=== PATIENT | male | born 1960 | race Caucasian/White ===

== ENCOUNTER 2017-11-25 11:05 | Inpatient (IN) | payer OTHER ==
[~2017-11-25 11:05] MED LIST: Acetaminophen 1,000 MG in Premix Bag 1 BAG IV SCH; Famotidine 20 MG/2 ML SDV IVPUSH SCH; Ropivacaine 49.25 ML, Ketorolac 30 MG, EPINEPHrine 0.5 MG, cloNIDine 80 MCG in Sodium C... INJECT SCH; Scopolamine 1.5 MG Transdermal Patch TRDERM SCH; Tranexamic Acid 4,000 MG in Sodium Chloride 0.9% 100 ML IV SCH; ceFAZolin 2 GM in Premix Bag 1 BAG IV SCH; oxyCODONE ER 10 MG TAB.ER PO SCH
[2017-11-25] MEDS ORDERED: ceFAZolin 1 GM Vial ONE ×2 (11:25)
[2017-11-25] MEDS ORDERED: fentaNYL 100 MCG/2 ML SDV ONE (11:25)
[2017-11-25] MEDS: Lactated Ringers 1,000 ML IV SCH ×2 (11:25→15:32)
[2017-11-25] MEDS: Ketorolac 30 MG/ML SDV IVPUSH SCH ×3 (11:29→20:14)
--- NOTE | 2017-11-25 11:50 | PCM.PREANE ---
Preanesthetic Assessment - Procedure Proposed Procedure: rt total knee - Anesthesia/Transfusion/Family Hx Anesthesia History: Prior Anesthesia Without Reaction Family History of Anesthesia Reaction: No Transfusion History: No Prior Transfusion(s) Intubation History: Unknown - Review of Systems General: No Symptoms Pulmonary: No Symptoms, Other (recently quit smoking. no inhaler use for weeks) Cardiovascular: No Symptoms, Other (history of valve surgery at age 2 yrs. no cardiac problems since) Gastrointestinal: No Symptoms Neurological: No Symptoms Other: Reports: None - Physical Assessment NPO Status Date: 11/25/17 NPO Status Time: 00:00 O2 Sat by Pulse Oximetry: 96 Respiratory Rate: 16 Vital Signs: Last Vital Signs Temp 36.2 C 11/25/17 11:24 Pulse 83 11/25/17 11:24 Resp 16 11/25/17 11:24 BP 117/80 11/25/17 11:24 Pulse Ox 96 11/25/17 11:24 Height: 1.8 m Weight: 122.47 kg ASA Class: 2 Mental Status: Alert & Oriented x3 Airway Class: Mallampati = 2 Dentition: Reports: Bridge (front permanent bridge) Thyro-Mental Finger Breadths: 3 Mouth Opening Finger Breadths: 3 ROM/Head Extension: Full Lungs: Decreased Breath Sounds Cardiovascular: Regular Rate - Allergies Allergies/Adverse Reactions: Allergies Allergy/AdvReac Type Severity Reaction Status Date / Time No Known Allergies Allergy Verified 11/21/17 08:30 - Blood Blood Available: No - Acknowledgements Anesthesia Type Planned: Spinal Pt an Appropriate Candidate for the Planned Anesthesia: Yes Alternatives and Risks of Anesthesia Discussed w Pt/Guardian: Yes Pt/Guardian Understands and Agrees with Anesthesia Plan: Yes PreAnesthesia Questionnaire HEENT History: Reports: Allergic Rhinitis Other HEENT History: wears glasses Cardiovascular History: Reports: Hypertension Respiratory History: Reports: COPD Other Respiratory History: mild COPD, has rarely used inhaler Gastrointestinal History: Reports: GERD Musculoskeletal History: Reports: Arthritis, Fracture Other Musculoskeletal History: hx of fx left arm x3 Endocrine/Metabolic History: Reports: Obesity/BMI 30+ Hematologic History: Reports: Other (See Below) Other Hematologic History: may have had a transfusion at age 2 during open heart valve surgery Oncologic (Cancer) History: Reports: Basal Cell Carcinoma Other Oncologic History: states he has a basal cell carcinoma on left reese - Past Surgical History Head Surgeries/Procedures: Reports: None Cardiovascular Surgical History: Reports: Other (See Below) Other Cardiovascular Surgeries/Procedures: ?removal of valvular lesion at age 2 Musculoskeletal Surgical History: Reports: Other (See Below) Other Musculoskeletal Surgeries/Procedures:: hx of ACL repair right knee (has screws) - SUBSTANCE USE Smoking Status *Q: Former Smoker Tobacco Use Within Last Twelve Months: Cigarettes Days Per Week of Alcohol Use: 7 Number of Drinks Per Day: 3 Total Drinks Per Week: 21 Recreational Drug Use History: No - HOME MEDS Home Medications: Home Meds Fluticasone Propionate [Flonase Allergy Relief] 1 spray NASBOTH ASDIRECTED PRN 10/14/15 [History] Albuterol [IJD: Albuterol HFA] 2 puff INH ASDIRECTED PRN 11/21/17 [History] Naproxen Sodium [Aleve] 1 tab PO ASDIRECTED PRN 11/21/17 [History] Olmesartan/Amlodipin/Hcthiazid [Tribenzor 40-5-25 MG] 1 tab PO DAILY 11/21/17 [ History] Omeprazole 20 mg PO DAILY PRN 11/21/17 [History] - CURRENT (IN HOUSE) MEDS Current Meds: Current Medications Famotidine (Pepcid) 40 mg IVPUSH ONARRIVE [facility] Last Admin: 11/25/17 11:27 Dose: 40 mg Acetaminophen 1,000 mg/ Premix 100 mls @ 400 mls/hr IV ONARRIVE [facility] Last Admin: 11/25/17 11:31 Dose: 400 mls/hr Cefazolin Sodium/Dextrose 2 gm (/ Premix) 50 mls @ 100 mls/hr IV ONCALL [facility] Ropivacaine 49.25 ml/Ketorolac Tromethamine 30 mg/Epinephrine HCl 0.5 mg/ Clonidine HCl 80 mcg/ Sodium Chloride 100 mls @ 50 mls/min INJECT ASDIRECTED [facility] Lactated Ringer's (Ringers, Lactated) 1,000 mls @ 100 mls/hr IV ASDIRECTED [facility] Last Admin: 11/25/17 11:25 Dose: 100 mls/hr Tranexamic Acid 4,000 mg/ (Sodium Chloride) 140 mls @ 600 mls/hr IV ASDIRECTED [facility] Ketorolac Tromethamine (Toradol) 30 mg IVPUSH ONARRIVE [facility] Last Admin: 11/25/17 11:29 Dose: 30 mg Oxycodone HCl (Oxycontin) 10 mg PO ONARRIVE [facility] Last Admin: 11/25/17 11:26 Dose: 10 mg Scopolamine (Transderm-Scop) 1.5 mg TRDERM ONARRIVE [facility] Last Admin: 11/25/17 11:26 Dose: 1.5 mg Discontinued Medications Cefazolin Sodium (Ancef) Confirm Administered Dose 1 gm .ROUTE .STK-MED ONE Stop: 11/25/17 11:26 Cefazolin Sodium (Ancef) Confirm Administered Dose 1 gm .ROUTE .STK-MED ONE Stop: 11/25/17 11:26 Fentanyl (Sublimaze) Confirm Administered Dose 100 mcg .ROUTE .STK-MED ONE Stop: 11/25/17 11:26 Tranexamic Acid (Cyklokapron) Confirm Administered Dose 4,000 mg .ROUTE .STK- MED ONE Stop: 11/25/17 10:59
[2017-11-25] MEDS ORDERED: Midazolam 1 MG/ML 2 ML SDV ONE ×3 (12:37→13:21)
[2017-11-25] MEDS ORDERED: Propofol 200 MG/20 ML SDV ONE (12:43)
[2017-11-25] MEDS ORDERED: ePHEDrine 50 MG/ML SDV ONE (12:54)
--- NOTE | 2017-11-25 13:05 | PCM.POSTAN ---
POST ANESTHESIA ASSESSMENT - MENTAL STATUS Mental Status: Alert, Oriented - RESPIRATORY Respiratory Status: Respiratory Rate WNL, Airway Patent, O2 Saturation Stable - CARDIOVASCULAR CV Status: Pulse Rate WNL, Blood Pressure Stable - GASTROINTESTINAL GI Status: No Symptoms - POST OP HYDRATION Hydration Status: Adequate & Stable
[2017-11-25] MEDS ORDERED: diphenhydrAMINE 50 MG/ML SDV ONE (13:07)
[2017-11-25] MEDS ORDERED: Ondansetron 4 MG/2 ML SDV ONE (13:07)
[2017-11-25] MEDS ORDERED: Ondansetron 4 MG/2 ML SDV IV PRN (14:25)
[2017-11-25] MEDS ORDERED: Bisacodyl 10 MG Supp RECTAL PRN (14:26)
[2017-11-25] MEDS ORDERED: diphenhydrAMINE 25 MG Cap PO PRN (14:26)
[2017-11-25] MEDS ORDERED: Aluminum Hydroxide/Magnesium Hydroxide/Simethicone Susp 30 ML Cup PO PRN (14:26)
[2017-11-25] MEDS ORDERED: Fluticasone Propionate Nasal Spray 16 GM Bottle NASBOTH PRN (14:28)
[2017-11-25] MEDS ORDERED: Albuterol 8 GM Inhaler INH PRN (14:28)
--- NOTE | 2017-11-25 14:29 | PCM.OPNOTE ---
- General Post-Op/Procedure Note Date of Surgery/Procedure: 11/25/17 Operative Procedure(s): R TKA using iAssist Post-Op Diagnosis: DJD R knee Anesthesia Technique: Moderate Sedation, Spinal Primary Surgeon: Tessie Cornejo [employer] Supervisor: Thais Barboza [employer] Supervisor: Evaristo Hawk EBL in mLs: 100 Condition: Good Free Text/Narrative:: tt=16 min #[id number] Intake & Output 11/24/17 11/25/17 11/25/17 22:59 06:59 14:59 Output Total 125 Balance -125
--- NOTE | 2017-11-25 15:00 | CR ---
Right knee Clinical history: postoperative. Her graft there is satisfactory placement of a total knee prosthesis in anatomic position with skin clips anteriorly. There is a transverse distal metadiaphyseal screw i n the femur. This was present prior to surgery on April 02, 2017 Impression: Anatomically correct implanted total knee prosthesis
[2017-11-25] MEDS: Morphine PF 30 MG/30 ML PCA Vial IV SCH (15:05)
--- NOTE | 2017-11-25 15:05 | PCM.POSTAN ---
POST ANESTHESIA ASSESSMENT - MENTAL STATUS Mental Status: Alert, Oriented - VITAL SIGNS Pulse Rate: 66 SaO2: 97 Resp Rate: 10 Blood Pressure: 93/42 - RESPIRATORY Respiratory Status: Respiratory Rate WNL, Airway Patent, O2 Saturation Stable - CARDIOVASCULAR CV Status: Pulse Rate WNL, Blood Pressure Stable - GASTROINTESTINAL GI Status: No Symptoms - POST OP HYDRATION Hydration Status: Adequate & Stable - OBSERVATIONS Free Text/Narrative:: starting to move legs
[2017-11-25] MEDS: Acetaminophen/HYDROcodone 325-10 MG Tab PO PRN (17:12)
[2017-11-25] MEDS: ceFAZolin 2 GM in Premix Bag 1 BAG IV SCH (20:10)
--- NOTE | 2017-11-25 21:51 | OR ---
SURGEON: Tessie Cornejo MD DATE OF PROCEDURE: 11/25/2017 PREOPERATIVE DIAGNOSES: 1. Right knee degenerative joint disease, tricompartmental. 2. Status post right knee ACL reconstruction. POSTOPERATIVE DIAGNOSES: 1. Right knee degenerative joint disease, tricompartmental. 2. Status post right knee ACL reconstruction. PROCEDURE: Right total knee arthroplasty using [employer] computerized navigational technology. ASSISTANTS: Thais Barboza PA-C and Evaristo Hawk PA-C. ANESTHESIA: Spinal with sedation. ESTIMATED BLOOD LOSS: 100 mL. TOURNIQUET TIME: 16 minutes. COMPLICATIONS: None. DVT PROPHYLAXIS: PAS boot and JUAN hose to the nonoperative leg. IMPLANTS USED: Claudia Persona femoral component size 12 standard (LPS), tibial component size H, 10 mm all-polyethylene articular surface, and 35 mm all-polyethylene patella. INTRAOPERATIVE FINDINGS: Showed tricompartmental degenerative changes with grade 4 chondromalacia in all compartments. No significant synovitis was noted. The ACL graft appeared intact. BRIEF HISTORY: Lele is a 57-year-old male who has had complaint of progressive right knee pain. He has previously undergone a right knee ACL reconstruction. He did well initially following the ACL reconstruction, however, has developed increased pain in his knee recently. He had failed conservative treatment. Due to his lack of response to conservative treatment, I did recommend surgical intervention. Risks and goals of procedure were discussed with the patient and were documented preoperatively. He agreed to proceed. DESCRIPTION OF PROCEDURE: The patient was properly identified and brought to the operating room. The patient was then transferred from the operating room cart and placed on the operating table in a supine position. Anesthesia was administered by the anesthesia staff. After adequate anesthesia was obtained, a well-padded tourniquet was applied to the surgical lower extremity. Ruiz catheter was then placed. The lower extremity was then prepped in standard fashion using ChloraPrep solution. It was then sterilely draped. A time-out was performed to ensure correct site and procedure. Preoperative antibiotics were given along with one gram of tranexamic acid IV. The surgical site had been marked preoperatively. An incision was made over the anterior aspect of the knee. The subcutaneous tissues were dissected down to the level of the fascia. A medial parapatellar approach to the knee was made. A portion of the infrapatellar fat pad was then excised. The distal femur was then exposed. iAssist pads were calibrated preoperatively. The femoral cortex was entered centrally using a femoral spike. The femoral reference was then placed over the spike in a neutral rotation and was aligned with [facility] line. Two screws were then placed into the anterior fixation holes. Kinematic registration was then performed in 13 positions. Once the registration was confirmed, the femoral adjustment mechanism was placed along the anterior side of the femoral reference. Flexion/extension and varus/valgus were then adjusted appropriately for the cut. The femoral adjustment mechanism was then seated on the distal condyle. Three headless trocar pins were placed in the distal femoral cut guide. The registration was then released from the assembly. The femoral spike was removed with a slap hammer. The distal femur was then resected. Distal femoral cut validation was then performed with no changes noted. Instrumentation was then removed. The femur was then sized using an anterior referencing system. Appropriate size was noted. Pins were placed and removed. Pasquale's line and the epicondylar axis were then marked with electrocautery. The 4-in-1 cutting block was placed. This was placed in a slightly externally rotated position, which corresponded well with the previously drawn lines. The cutting guide was then pinned into position. An Neto wing guide was used to check the depth of resection of our anterior condylar cut and it was felt that no notching would occur. The anterior condylar cut was then made followed by the posterior condylar cut. Both the posterior chamfer and anterior chamfer cuts were then made. The cutting block was then removed along with the excess bony remnants. We then turned our attention to the tibia. The anterior cruciate ligament and posterior cruciate ligament were released and a posterior cruciate ligament retractor was placed to allow the tibia to be pulled anteriorly. The tibial alignment guide was then placed. Distally it was aligned with the medial and lateral malleoli. The longer spike was then placed into the mechanical axis. Rotation was then set to align with the medial third of the tibial tubercle. Both spikes were then inserted into the tibia. The tibial positioner and tibial adjustment mechanism were then placed onto the proximal part of the tibial alignment guide. The tibial positioner was then placed against the anterior cortex of the tibia. 3 hex head screws were used to secure the adjustment mechanism to the bone. Tibial registration was then performed. Adjustments were then made for flexion/extension and varus/valgus. A stylus was then placed into the guide. 2mm was used as the resection depth in the compartment with the most wear. This was then locked into position. The proximal tibial resection was then made with care being taken to protect the patellar tendon. The bony resection was then removed. The remainder of the medial and lateral meniscus were then excised. Care was taken to protect the popliteus tendon. The tibia was then sized to the appropriate size. Validation of the proximal tibial cut was then performed, with no changes noted. The femur was then elevated to aid in visualization of the posterior aspect of the knee. The posterior capsule was stripped off the distal femur both medially and laterally. The posterior capsule along with the medial and lateral gutters were then injected with a standard mixture consisting of Clonidine, Toradol, epinephrine, and Ropivacaine, unless any allergies were found preoperatively. The femoral component was then placed onto the distal femur in a slightly lateral position. This fit the femur well. A box cut was then made without difficulty. This was then removed. The tibial trial along with the polyethylene liner was then placed. The knee came easily into full extension and was stable to varus and valgus stressing both in full extension and flexion. Any additional releases were performed at this time. We then returned our attention to the patella. The patella was everted and towel clamps were used to hold the patella in position. It was resected to a 15 millimeter thickness. It was then sized to the appropriate size. It was prepared in the usual fashion after placing the predetermined size clamps. This was placed in a slightly superior and medial position. The clamp was then removed. The patellar trial button was placed. The knee was taken through a range of motion using the no-touch technique. The patella tracked centrally. All instruments were then removed from the knee. The tibial sizer was then placed on the tibia. The tibia was prepared in the usual fashion using the reamer and broach. This was then removed. An Esmarch was used to exsanguinate the lower extremity and the tourniquet was inflated. All bony surfaces were copiously irrigated with Pulsavac solution. They were then suctioned dry. Cement was prepared on the back table in the usual manner. Once it was prepared, the bone ends were again suctioned dry. The tibia was cemented into place first. This was malleted into position. Excess cement was then cleared. The femur was then placed in a similar manner. We placed the polyethylene trial into place and the knee was brought into full extension. An axial load was placed while keeping the knee in full extension. The patella button was also cemented into position and the clamp was used to hold this in place as the cement was allowed to cure. The wound was again copiously irrigated with a Pulsavac access tech. Following this one gram of tranexamic acid was applied topically to the wound. After we had adequate curing of the cement, the knee was again taken through a range of motion. The size of the polyethylene was then determined. The polyethylene was then removed. The tibial tray was suctioned to make sure there was no remaining soft tissue or cement. Excess cement was cleared from around the edges of the prosthesis as well. The tourniquet was then deflated. We were able to observe for any excess bleeding and none was noted. Electrocautery was used to maintain hemostasis. An additional gram of tranexamic acid was given IV. The retractors were again placed and the predetermined polyethylene was then placed. This was locked into position without difficulty. The knee was again taken through a range of motion with no change from the prior exam. The fascial layer was closed with Number One Vicryl. The subcutaneous tissues were closed with 2-0 Vicryl. The skin was closed with tom. Xeroform gauze was placed over the wound and a bulky dressing was applied. The patient was then awakened from anesthesia and transferred back to the operating room cart. He was brought to the recovery room in stable condition. All needle and sponge counts were correct. VIDYA / CARLOS /[id number] KODI
[2017-11-25] MEDS: oxyCODONE ER 10 MG TAB.ER PO SCH (21:56)
[2017-11-25] MEDS: Docusate Sodium 100 MG Cap PO SCH (21:56)
[2017-11-26] MEDS: Acetaminophen/HYDROcodone 325-10 MG Tab PO PRN ×2 (01:13→12:30)
[2017-11-26] MEDS: Ketorolac 30 MG/ML SDV IVPUSH SCH (02:19)
[2017-11-26] MEDS: Lactated Ringers 1,000 ML IV SCH (02:20)
[2017-11-26] MEDS: ceFAZolin 2 GM in Premix Bag 1 BAG IV SCH (04:12)
[2017-11-26] MEDS: Morphine PF 30 MG/30 ML PCA Vial IV SCH (08:15)
[2017-11-26] MEDS ORDERED: Sodium Chloride 0.9% 10 ML Syringe FLUSH PRN (08:26)
[2017-11-26] MEDS ORDERED: Sodium Chloride 0.9% 2.5 ML Syringe FLUSH PRN (08:26)
[2017-11-26] MEDS: Docusate Sodium 100 MG Cap PO SCH ×2 (08:28→20:26)
[2017-11-26] MEDS: Celecoxib 100 MG Cap PO SCH ×2 (08:29→20:26)
[2017-11-26] MEDS: Aspirin 325 MG Tab PO SCH ×2 (08:29→20:26)
[2017-11-26] MEDS: oxyCODONE ER 10 MG TAB.ER PO SCH ×2 (08:30→20:26)
[2017-11-26] MEDS: HCTHIAZID PO SCH (09:00)
[2017-11-26] MEDS: OLMESARTAN PO SCH (09:00)
[2017-11-26] MEDS: AMLODIPIN PO SCH (09:00)
--- NOTE | 2017-11-26 09:45 | PCM48HPAN ---
Post Anesthesia Note - EVALUATION WITHIN 48HRS OF ANESTHETIC Vital Signs in Normal Range: Yes Patient Participated in Evaluation: Yes Respiratory Function Stable: Yes Airway Patent: Yes Cardiovascular Function Stable: Yes Hydration Status Stable: Yes Pain Control Satisfactory: Yes Nausea and Vomiting Control Satisfactory: Yes Mental Status Recovered: Yes
--- NOTE | 2017-11-26 11:13 | PCM.SURGPN ---
<Thais Barboza R - Last Filed: 11/26/17 11:10> - General Info Date of Service: 11/26/17 Date of Surgery/Procedure: 11/25/17 POD#: 1 Functional Status: Reports: Tolerating Diet, Ambulating - Review of Systems General: Reports: No Symptoms Systems Review Comment:: pt up to chair for breakfast no specific concerns today states pain was difficult to control last night but slept well - Patient Data Vitals - Most Recent: Last Vital Signs Temp 99.0 F 11/26/17 07:25 Pulse 95 11/26/17 07:25 Resp 20 11/26/17 07:25 BP 108/64 11/26/17 07:25 Pulse Ox 92 L 11/26/17 07:25 Weight - Most Recent: 122.47 kg I&O - Last 24 Hours: Intake & Output 11/25/17 11/26/17 11/26/17 22:59 06:59 14:59 Intake Total 1999 1998 Output Total 60 550 Balance 1940 1449 Lab Results Last 24 Hrs: Laboratory Results - last 24 hr 11/25/17 11/25/17 11/26/17 Range/Units 12:02 12:02 05:01 Hgb 13.5 (13.0-17.0) g/dL Hct 39.6 (38.0-50.0) % INR 1.07 Blood Type A POSITIVE Antibody Screen NEGATIVE Med Orders - Current: Current Medications Hydrocodone Bitart/Acetaminophen (Olton 325-10 Mg) 1 - 2 tab PO Q4H PRN PRN Reason: Pain Last Admin: 11/26/17 01:13 Dose: 2 tab Al Hydroxide/Mg Hydroxide (Mag-Al Plus) 30 ml PO Q4H PRN PRN Reason: indigestion Albuterol (Ventolin Hfa) 8 gm INH ASDIRECTED PRN PRN Reason: Shortness of Breath Aspirin (Aspirin) 325 mg PO BID [facility] Last Admin: 11/26/17 08:29 Dose: 325 mg Bisacodyl (Dulcolax) 10 mg RECTAL DAILY PRN PRN Reason: Constipation Celecoxib (Celebrex) 200 mg PO BID [facility] Last Admin: 11/26/17 08:29 Dose: 200 mg Diphenhydramine HCl (Benadryl) 25 - 50 mg PO Q6H PRN PRN Reason: Itching Docusate Sodium (Colace) 100 mg PO BID [facility] Last Admin: 11/26/17 08:28 Dose: 100 mg Famotidine (Pepcid) 40 mg IVPUSH ONARRIVE [facility] Last Admin: 11/25/17 11:27 Dose: 40 mg Fluticasone Propionate (Flonase) 16 gm NASBOTH ASDIRECTED PRN PRN Reason: nasal congestion Acetaminophen 1,000 mg/ Premix 100 mls @ 400 mls/hr IV ONARRIVE [facility] Last Admin: 11/25/17 11:31 Dose: 400 mls/hr Cefazolin Sodium/Dextrose 2 gm (/ Premix) 50 mls @ 100 mls/hr IV ONCALL [facility] Ropivacaine 49.25 ml/Ketorolac Tromethamine 30 mg/Epinephrine HCl 0.5 mg/ Clonidine HCl 80 mcg/ Sodium Chloride 100 mls @ 50 mls/min INJECT ASDIRECTED [facility] Tranexamic Acid 4,000 mg/ (Sodium Chloride) 140 mls @ 600 mls/hr IV ASDIRECTED [facility] Ketorolac Tromethamine (Toradol) 30 mg IVPUSH ONARRIVE [facility] Last Admin: 11/25/17 11:29 Dose: 30 mg Morphine Sulfate (Morphine) 1 - 3 mg IVPUSH Q3H PRN PRN Reason: Pain Omeprazole (Omeprazole) 20 mg PO ACBREAKFAST PRN PRN Reason: Heartburn Ondansetron HCl (Zofran) 4 mg IV Q6HR PRN PRN Reason: NAUSEA/VOMITING Oxycodone HCl (Oxycontin) 10 mg PO ONARRIVE [facility] Last Admin: 11/25/17 11:26 Dose: 10 mg Oxycodone HCl (Oxycontin) 10 mg PO Q12HR [facility] Last Admin: 11/26/17 08:30 Dose: 10 mg Olmesartan/Amlodipin /Hcthiazid [ Tribenzor 40-5-25 Mg ] 1 Tab 1 each PO DAILY [facility] Last Admin: 11/26/17 09:00 Dose: Not Given Scopolamine (Transderm-Scop) 1.5 mg TRDERM ONARRIVE [facility] Last Admin: 11/25/17 11:26 Dose: 1.5 mg Sodium Chloride (Saline Flush) 10 ml FLUSH ASDIRECTED PRN PRN Reason: Keep Vein Open Sodium Chloride (Saline Flush) 2.5 ml FLUSH ASDIRECTED PRN PRN Reason: Keep Vein Open Discontinued Medications Cefazolin Sodium (Ancef) Confirm Administered Dose 1 gm .ROUTE .[facility] ONE Stop: 11/25/17 11:26 Cefazolin Sodium (Ancef) Confirm Administered Dose 1 gm .ROUTE .[facility] ONE Stop: 11/25/17 11:26 Diphenhydramine HCl (Benadryl) Confirm Administered Dose 50 mg .ROUTE .[facility] ONE Stop: 11/25/17 13:08 Ephedrine Sulfate (Ephedrine Sulfate) Confirm Administered Dose 50 mg .ROUTE .[facility] ONE Stop: 11/25/17 12:55 Fentanyl (Sublimaze) Confirm Administered Dose 100 mcg .ROUTE .[facility] ONE Stop: 11/25/17 11:26 Lactated Ringer's (Ringers, Lactated) 1,000 mls @ 100 mls/hr IV ASDIRECTED [facility] Last Admin: 11/26/17 02:20 Dose: 100 mls/hr Cefazolin Sodium/Dextrose 2 gm (/ Premix) 50 mls @ 100 mls/hr IV Q8H [facility] Stop: 11/26/17 04:29 Last Admin: 11/26/17 04:12 Dose: 100 mls/hr Ketorolac Tromethamine (Toradol) 30 mg IVPUSH Q6H [facility] Stop: 11/26/17 04:00 Last Admin: 11/26/17 02:19 Dose: 30 mg Midazolam HCl (Versed 1 Mg/Ml) Confirm Administered Dose 2 mg .ROUTE .[facility] ONE Stop: 11/25/17 12:38 Midazolam HCl (Versed 1 Mg/Ml) Confirm Administered Dose 2 mg .ROUTE .[facility] ONE Stop: 11/25/17 12:54 Midazolam HCl (Versed 1 Mg/Ml) Confirm Administered Dose 2 mg .ROUTE .[facility] ONE Stop: 11/25/17 13:22 Morphine Sulfate (Morphine Fleet Driver 30 Mg In 30 Ml) 30 mg IV ASDIRECTED [facility] PRN Reason: Protocol Last Admin: 11/26/17 08:15 Dose: 30 mg Ondansetron HCl (Zofran) Confirm Administered Dose 4 mg .ROUTE .[facility] ONE Stop: 11/25/17 13:08 Propofol (Diprivan 20 Ml) Confirm Administered Dose 600 mg .ROUTE .[facility] ONE Stop: 11/25/17 12:44 Tranexamic Acid (Cyklokapron) Confirm Administered Dose 4,000 mg .ROUTE .[facility] ONE Stop: 11/25/17 10:59 - Exam Wound/Incisions: Dressing Dry and Intact. No: Drainage, Erythema General: Alert, Oriented Cardiovascular: Regular Rate, Regular Rhythm Extremities: Other (exam R knee reveals dressing in place. at/ehl/gastroc 5/5, dp 2+, sensation intact distally) Physical Findings Comment:: vss, afeb uo 735mL hgb 13.5 - Problem List Review Problem List Initiated/Reviewed/Updated: Yes - My Orders Last 24 Hours: Active Orders 24 hr Category Date Time Status Activity as Tolerated [RC] .Routine Care 11/25/17 14:25 Active Dressing Change [Wound Care] [RC] ASDIRECTED Care 11/25/17 14:25 Active Neurovascular Check [RC] Q2HR Care 11/25/17 14:24 Active Notify Provider Vital Signs [RC] ASDIRECTED Care 11/25/17 14:25 Active Urinary Catheter Removal [RC] Per Unit Routine Care 11/26/17 08:26 Active Vital Signs [RC] Q4H Care 11/25/17 14:24 Active PT Evaluation and Treatment [CONS] Routine Cons 11/25/17 14:24 Active HEMOGLOBIN/HEMATOCRIT,HH [HEME] DAILY Lab 11/27/17 06:00 Ordered HEMOGLOBIN/HEMATOCRIT,HH [HEME] DAILY Lab 11/28/17 06:00 Ordered Acetaminophen/HYDROcodone [Olton 325-10 MG] Med 11/25/17 14:25 Active 1 - 2 tab PO Q4H PRN Albuterol [Ventolin HFA] Med 11/25/17 14:28 Active 8 gm INH ASDIRECTED PRN Alum Hydrox/Mag Hydrox/Simeth [Mag-Al Plus] Med 11/25/17 14:26 Active 30 ml PO Q4H PRN Aspirin Med 11/26/17 09:00 Active 325 mg PO BID Bisacodyl [Dulcolax] Med 11/25/17 14:26 Active 10 mg RECTAL DAILY PRN Celecoxib [CeleBREX] Med 11/26/17 09:00 Active 200 mg PO BID Docusate Sodium [Colace] Med 11/25/17 21:00 Active 100 mg PO BID Fluticasone Propionate [Flonase] Med 11/25/17 14:28 Active 16 gm NASBOTH ASDIRECTED PRN Morphine Med 11/26/17 08:25 Active 1 - 3 mg IVPUSH Q3H PRN Omeprazole Med 11/25/17 14:28 Active 20 mg PO ACBREAKFAST PRN Ondansetron [Zofran] Med 11/25/17 14:25 Active 4 mg IV Q6HR PRN Patient's Own Medication [Ptom] Med 11/26/17 09:00 Active 1 each PO DAILY Sodium Chloride 0.9% [Saline Flush] Med 11/26/17 08:26 Active 10 ml FLUSH ASDIRECTED PRN Sodium Chloride 0.9% [Saline Flush] Med 11/26/17 08:26 Active 2.5 ml FLUSH ASDIRECTED PRN diphenhydrAMINE [Benadryl] Med 11/25/17 14:26 Active 25 - 50 mg PO Q6H PRN oxyCODONE ER [OxyCONTIN] Med 11/25/17 21:00 Active 10 mg PO Q12HR Convert IV to Saline Lock [OM.PC] Routine Oth 11/26/17 08:26 Ordered Ice Therapy [OM.PC] Routine Oth 11/25/17 14:24 Ordered Medication Orders Hydrocodone Bitart/Acetaminophen (Olton 325-10 Mg) 1 - 2 tab PO Q4H PRN PRN Reason: Pain Last Admin: 11/26/17 01:13 Dose: 2 tab Admin: 11/25/17 17:12 Dose: 1 tab Al Hydroxide/Mg Hydroxide (Mag-Al Plus) 30 ml PO Q4H PRN PRN Reason: indigestion Albuterol (Ventolin Hfa) 8 gm INH ASDIRECTED PRN PRN Reason: Shortness of Breath Aspirin (Aspirin) 325 mg PO BID [facility] Last Admin: 11/26/17 08:29 Dose: 325 mg Bisacodyl (Dulcolax) 10 mg RECTAL DAILY PRN PRN Reason: Constipation Celecoxib (Celebrex) 200 mg PO BID [facility] Last Admin: 11/26/17 08:29 Dose: 200 mg Diphenhydramine HCl (Benadryl) 25 - 50 mg PO Q6H PRN PRN Reason: Itching Docusate Sodium (Colace) 100 mg PO BID [facility] Last Admin: 11/26/17 08:28 Dose: 100 mg Admin: 11/25/17 21:56 Dose: 100 mg Famotidine (Pepcid) 40 mg IVPUSH ONARRIVE [facility] Last Admin: 11/25/17 11:27 Dose: 40 mg Fluticasone Propionate (Flonase) 16 gm NASBOTH ASDIRECTED PRN PRN Reason: nasal congestion Acetaminophen 1,000 mg/ Premix 100 mls @ 400 mls/hr IV ONARRIVE [facility] Last Admin: 11/25/17 11:31 Dose: 400 mls/hr Cefazolin Sodium/Dextrose 2 gm (/ Premix) 50 mls @ 100 mls/hr IV ONCALL [facility] Ropivacaine 49.25 ml/Ketorolac Tromethamine 30 mg/Epinephrine HCl 0.5 mg/ Clonidine HCl 80 mcg/ Sodium Chloride 100 mls @ 50 mls/min INJECT ASDIRECTED [facility] Tranexamic Acid 4,000 mg/ (Sodium Chloride) 140 mls @ 600 mls/hr IV ASDIRECTED [facility] Ketorolac Tromethamine (Toradol) 30 mg IVPUSH ONARRIVE [facility] Last Admin: 11/25/17 11:29 Dose: 30 mg Morphine Sulfate (Morphine) 1 - 3 mg IVPUSH Q3H PRN PRN Reason: Pain Omeprazole (Omeprazole) 20 mg PO ACBREAKFAST PRN PRN Reason: Heartburn Ondansetron HCl (Zofran) 4 mg IV Q6HR PRN PRN Reason: NAUSEA/VOMITING Oxycodone HCl (Oxycontin) 10 mg PO ONARRIVE [facility] Last Admin: 11/25/17 11:26 Dose: 10 mg Oxycodone HCl (Oxycontin) 10 mg PO Q12HR [facility] Last Admin: 11/26/17 08:30 Dose: 10 mg Admin: 11/25/17 21:56 Dose: 10 mg Olmesartan/Amlodipin /Hcthiazid [ Tribenzor 40-5-25 Mg ] 1 Tab 1 each PO DAILY [facility] Last Admin: 11/26/17 09:00 Dose: Scopolamine (Transderm-Scop) 1.5 mg TRDERM ONARRIVE [facility] Last Admin: 11/25/17 11:26 Dose: 1.5 mg Sodium Chloride (Saline Flush) 10 ml FLUSH ASDIRECTED PRN PRN Reason: Keep Vein Open Sodium Chloride (Saline Flush) 2.5 ml FLUSH ASDIRECTED PRN PRN Reason: Keep Vein Open - Assessment Assessment (Free Text/Narrative):: POD#1 R TKA - Plan Plan (Free Text/Narrative):: DC [employer] CHE[employer], IV fluids, glass morphine 1-3mg IV q3h prn pain PT today ASA 325mg PO BID for DVT prophylaxis if pt does well with PT and pain is well controlled, may consider d/ch to home this afternoon will need dressing change to aquacel prior to discharge <Tessie Cornejo R - Last Filed: 11/27/17 08:34> - Patient Data Vitals - Most Recent: Last Vital Signs Temp 98.2 F 11/27/17 04:00 Pulse 82 11/27/17 04:00 Resp 18 11/27/17 04:00 BP 124/74 11/27/17 04:00 Pulse Ox 93 L 11/27/17 04:00 I&O - Last 24 Hours: Intake & Output 11/26/17 11/27/17 11/27/17 22:59 06:59 14:59 Intake Total 700 1650 Output Total 200 600 Balance 500 1050 Lab Results Last 24 Hrs: Laboratory Results - last 24 hr 11/27/17 Range/Units 05:25 Hgb 12.7 L (13.0-17.0) g/dL Hct 37.8 L (38.0-50.0) % Med Orders - Current: Current Medications Al Hydroxide/Mg Hydroxide (Mag-Al Plus) 30 ml PO Q4H PRN PRN Reason: indigestion Albuterol (Ventolin Hfa) 8 gm INH ASDIRECTED PRN PRN Reason: Shortness of Breath Aspirin (Aspirin) 325 mg PO BID [facility] Last Admin: 11/27/17 08:12 Dose: 325 mg Bisacodyl (Dulcolax) 10 mg RECTAL DAILY PRN PRN Reason: Constipation Celecoxib (Celebrex) 200 mg PO BID [facility] Last Admin: 11/27/17 08:10 Dose: 200 mg Diphenhydramine HCl (Benadryl) 25 - 50 mg PO Q6H PRN PRN Reason: Itching Docusate Sodium (Colace) 100 mg PO BID [facility] Last Admin: 11/27/17 08:11 Dose: 100 mg Famotidine (Pepcid) 40 mg IVPUSH ONARRIVE [facility] Last Admin: 11/25/17 11:27 Dose: 40 mg Fluticasone Propionate (Flonase) 16 gm NASBOTH ASDIRECTED PRN PRN Reason: nasal congestion Acetaminophen 1,000 mg/ Premix 100 mls @ 400 mls/hr IV ONARRIVE [facility] Last Admin: 11/25/17 11:31 Dose: 400 mls/hr Cefazolin Sodium/Dextrose 2 gm (/ Premix) 50 mls @ 100 mls/hr IV ONCALL [facility] Ropivacaine 49.25 ml/Ketorolac Tromethamine 30 mg/Epinephrine HCl 0.5 mg/ Clonidine HCl 80 mcg/ Sodium Chloride 100 mls @ 50 mls/min INJECT ASDIRECTED [facility] Tranexamic Acid 4,000 mg/ (Sodium Chloride) 140 mls @ 600 mls/hr IV ASDIRECTED [facility] Ketorolac Tromethamine (Toradol) 30 mg IVPUSH ONARRIVE [facility] Last Admin: 11/25/17 11:29 Dose: 30 mg Morphine Sulfate (Morphine) 1 - 3 mg IVPUSH Q3H PRN PRN Reason: Pain Last Admin: 11/27/17 08:08 Dose: 3 mg Omeprazole (Omeprazole) 20 mg PO ACBREAKFAST PRN PRN Reason: Heartburn Last Admin: 11/27/17 08:24 Dose: 20 mg Ondansetron HCl (Zofran) 4 mg IV Q6HR PRN PRN Reason: NAUSEA/VOMITING Last Admin: 11/26/17 11:14 Dose: 4 mg Oxycodone HCl (Oxycontin) 10 mg PO ONARRIVE [facility] Last Admin: 11/25/17 11:26 Dose: 10 mg Oxycodone HCl (Oxycontin) 10 mg PO Q12HR [facility] Last Admin: 11/27/17 08:11 Dose: 10 mg Oxycodone/Acetaminophen (Percocet 325-10 Mg) 2 tab PO Q4H PRN PRN Reason: Pain Last Admin: 11/27/17 02:16 Dose: 2 tab Olmesartan/Amlodipin /Hcthiazid [ Tribenzor 40-5-25 Mg ] 1 Tab 1 each PO DAILY [facility] Last Admin: 11/27/17 08:14 Dose: Not Given Scopolamine (Transderm-Scop) 1.5 mg TRDERM ONARRIVE [facility] Last Admin: 11/25/17 11:26 Dose: 1.5 mg Sodium Chloride (Saline Flush) 10 ml FLUSH ASDIRECTED PRN PRN Reason: Keep Vein Open Sodium Chloride (Saline Flush) 2.5 ml FLUSH ASDIRECTED PRN PRN Reason: Keep Vein Open Discontinued Medications Hydrocodone Bitart/Acetaminophen ([place] 325-10 Mg) 1 - 2 tab PO Q4H PRN PRN Reason: Pain Last Admin: 11/26/17 12:30 Dose: 2 tab Cefazolin Sodium (Ancef) Confirm Administered Dose 1 gm .ROUTE .[facility] ONE Stop: 11/25/17 11:26 Cefazolin Sodium (Ancef) Confirm Administered Dose 1 gm .ROUTE .[facility] ONE Stop: 11/25/17 11:26 Diphenhydramine HCl (Benadryl) Confirm Administered Dose 50 mg .ROUTE .[facility] ONE Stop: 11/25/17 13:08 Ephedrine Sulfate (Ephedrine Sulfate) Confirm Administered Dose 50 mg .ROUTE .[facility] ONE Stop: 11/25/17 12:55 Fentanyl (Sublimaze) Confirm Administered Dose 100 mcg .ROUTE .[facility] ONE Stop: 11/25/17 11:26 Lactated Ringer's (Ringers, Lactated) 1,000 mls @ 100 mls/hr IV ASDIRECTED [facility] Last Admin: 11/26/17 02:20 Dose: 100 mls/hr Cefazolin Sodium/Dextrose 2 gm (/ Premix) 50 mls @ 100 mls/hr IV Q8H [facility] Stop: 11/26/17 04:29 Last Admin: 11/26/17 04:12 Dose: 100 mls/hr Ketorolac Tromethamine (Toradol) 30 mg IVPUSH Q6H [facility] Stop: 11/26/17 04:00 Last Admin: 11/26/17 02:19 Dose: 30 mg Midazolam HCl (Versed 1 Mg/Ml) Confirm Administered Dose 2 mg .ROUTE .[facility] ONE Stop: 11/25/17 12:38 Midazolam HCl (Versed 1 Mg/Ml) Confirm Administered Dose 2 mg .ROUTE .[facility] ONE Stop: 11/25/17 12:54 Midazolam HCl (Versed 1 Mg/Ml) Confirm Administered Dose 2 mg .ROUTE .[facility] ONE Stop: 11/25/17 13:22 Morphine Sulfate (Morphine Fleet Driver 30 Mg In 30 Ml) 30 mg IV ASDIRECTED [facility] PRN Reason: Protocol Last Admin: 11/26/17 08:15 Dose: 30 mg Ondansetron HCl (Zofran) Confirm Administered Dose 4 mg .ROUTE .[facility] ONE Stop: 11/25/17 13:08 Propofol (Diprivan 20 Ml) Confirm Administered Dose 600 mg .ROUTE .[facility] ONE Stop: 11/25/17 12:44 Tranexamic Acid (Cyklokapron) Confirm Administered Dose 4,000 mg .ROUTE .[facility] ONE Stop: 11/25/17 10:59 - My Orders Last 24 Hours: Active Orders 24 hr Category Date Time Status HEMOGLOBIN/HEMATOCRIT,HH [HEME] DAILY Lab 11/28/17 06:00 Ordered Acetaminophen/oxyCODONE [Percocet 325-10 MG] Med 11/26/17 17:46 Active 2 tab PO Q4H PRN Aspirin Med 11/26/17 09:00 Active 325 mg PO BID Celecoxib [CeleBREX] Med 11/26/17 09:00 Active 200 mg PO BID Morphine Med 11/26/17 08:25 Active 1 - 3 mg IVPUSH Q3H PRN Patient's Own Medication [Ptom] Med 11/26/17 09:00 Active 1 each PO DAILY Sodium Chloride 0.9% [Saline Flush] Med 11/26/17 08:26 Active 10 ml FLUSH ASDIRECTED PRN Sodium Chloride 0.9% [Saline Flush] Med 11/26/17 08:26 Active 2.5 ml FLUSH ASDIRECTED PRN Convert IV to Saline Lock [OM.PC] Routine Oth 11/26/17 08:26 Ordered Medication Orders Al Hydroxide/Mg Hydroxide (Mag-Al Plus) 30 ml PO Q4H PRN PRN Reason: indigestion Albuterol (Ventolin Hfa) 8 gm INH ASDIRECTED PRN PRN Reason: Shortness of Breath Aspirin (Aspirin) 325 mg PO BID [facility] Last Admin: 11/27/17 08:12 Dose: 325 mg Admin: 11/26/17 20:26 Dose: 325 mg Admin: 11/26/17 08:29 Dose: 325 mg Bisacodyl (Dulcolax) 10 mg RECTAL DAILY PRN PRN Reason: Constipation Celecoxib (Celebrex) 200 mg PO BID [facility] Last Admin: 11/27/17 08:10 Dose: 200 mg Admin: 11/26/17 20:26 Dose: 200 mg Admin: 11/26/17 08:29 Dose: 200 mg Diphenhydramine HCl (Benadryl) 25 - 50 mg PO Q6H PRN PRN Reason: Itching Docusate Sodium (Colace) 100 mg PO BID [facility] Last Admin: 11/27/17 08:11 Dose: 100 mg Admin: 11/26/17 20:26 Dose: 100 mg Admin: 11/26/17 08:28 Dose: 100 mg Admin: 11/25/17 21:56 Dose: 100 mg Famotidine (Pepcid) 40 mg IVPUSH ONARRIVE [facility] Last Admin: 11/25/17 11:27 Dose: 40 mg Fluticasone Propionate (Flonase) 16 gm NASBOTH ASDIRECTED PRN PRN Reason: nasal congestion Acetaminophen 1,000 mg/ Premix 100 mls @ 400 mls/hr IV ONARRIVE [facility] Last Admin: 11/25/17 11:31 Dose: 400 mls/hr Cefazolin Sodium/Dextrose 2 gm (/ Premix) 50 mls @ 100 mls/hr IV ONCALL [facility] Ropivacaine 49.25 ml/Ketorolac Tromethamine 30 mg/Epinephrine HCl 0.5 mg/ Clonidine HCl 80 mcg/ Sodium Chloride 100 mls @ 50 mls/min INJECT ASDIRECTED [facility] Tranexamic Acid 4,000 mg/ (Sodium Chloride) 140 mls @ 600 mls/hr IV ASDIRECTED [facility] Ketorolac Tromethamine (Toradol) 30 mg IVPUSH ONARRIVE [facility] Last Admin: 11/25/17 11:29 Dose: 30 mg Morphine Sulfate (Morphine) 1 - 3 mg IVPUSH Q3H PRN PRN Reason: Pain Last Admin: 11/27/17 08:08 Dose: 3 mg Admin: 11/26/17 15:49 Dose: 3 mg Admin: 11/26/17 13:04 Dose: 3 mg Omeprazole (Omeprazole) 20 mg PO ACBREAKFAST PRN PRN Reason: Heartburn Last Admin: 11/27/17 08:24 Dose: 20 mg Admin: 11/26/17 16:39 Dose: 20 mg Ondansetron HCl (Zofran) 4 mg IV Q6HR PRN PRN Reason: NAUSEA/VOMITING Last Admin: 11/26/17 11:14 Dose: 4 mg Oxycodone HCl (Oxycontin) 10 mg PO ONARRIVE [facility] Last Admin: 11/25/17 11:26 Dose: 10 mg Oxycodone HCl (Oxycontin) 10 mg PO Q12HR [facility] Last Admin: 11/27/17 08:11 Dose: 10 mg Admin: 11/26/17 20:26 Dose: 10 mg Admin: 11/26/17 08:30 Dose: 10 mg Admin: 11/25/17 21:56 Dose: 10 mg Oxycodone/Acetaminophen (Percocet 325-10 Mg) 2 tab PO Q4H PRN PRN Reason: Pain Last Admin: 11/27/17 02:16 Dose: 2 tab Admin: 11/26/17 17:56 Dose: 2 tab Olmesartan/Amlodipin /Hcthiazid [ Tribenzor 40-5-25 Mg ] 1 Tab 1 each PO DAILY [facility] Last Admin: 11/27/17 08:14 Dose: Admin: 11/26/17 09:00 Dose: Scopolamine (Transderm-Scop) 1.5 mg TRDERM ONARRIVE [facility] Last Admin: 11/25/17 11:26 Dose: 1.5 mg Sodium Chloride (Saline Flush) 10 ml FLUSH ASDIRECTED PRN PRN Reason: Keep Vein Open Sodium Chloride (Saline Flush) 2.5 ml FLUSH ASDIRECTED PRN PRN Reason: Keep Vein Open - Plan Plan (Free Text/Narrative):: Late entry Patient seen and examined last night at 1730. Sitting up in chair for supper. Still with pain despite po and IV meds. Dressing dry/intact. Weakness with ankle dorsiflexion and EHL, but able to fire muscle. No calf TTP. hgb stable. Change to Percocet. Plan discharge home tomorrow.
[2017-11-26] MEDS: Morphine 4 MG/ML Syringe IVPUSH PRN ×2 (13:04→15:49)
[2017-11-26] MEDS: Omeprazole 20 MG Cap.CR PO PRN (16:39)
[2017-11-26] MEDS: Acetaminophen/oxyCODONE 325-10 MG Tab PO PRN (17:56)
[2017-11-27] MEDS: Acetaminophen/oxyCODONE 325-10 MG Tab PO PRN ×2 (02:16→11:47)
[2017-11-27] MEDS: Morphine 4 MG/ML Syringe IVPUSH PRN (08:08)
[2017-11-27] MEDS: Celecoxib 100 MG Cap PO SCH (08:10)
[2017-11-27] MEDS: Docusate Sodium 100 MG Cap PO SCH (08:11)
[2017-11-27] MEDS: oxyCODONE ER 10 MG TAB.ER PO SCH (08:11)
[2017-11-27] MEDS: Aspirin 325 MG Tab PO SCH (08:12)
[2017-11-27] MEDS: HCTHIAZID PO SCH (08:14)
[2017-11-27] MEDS: OLMESARTAN PO SCH (08:14)
[2017-11-27] MEDS: AMLODIPIN PO SCH (08:14)
[2017-11-27] MEDS: Omeprazole 20 MG Cap.CR PO PRN (08:24)
--- NOTE | 2017-11-27 08:51 | PCM.SURGPN ---
Addendum entered and electronically signed by Thais Barboza PA 11/27/17 10: 16: d/ summary #[id number] Original Note: <Thais Barboza - Last Filed: 11/27/17 08:49> - General Info Date of Service: 11/27/17 Date of Surgery/Procedure: 11/25/17 POD#: 2 Functional Status: Reports: Pain Controlled, Tolerating Diet, Ambulating, Urinating - Review of Systems General: Reports: No Symptoms Musculoskeletal: Reports: Leg Pain Systems Review Comment:: pt up to chair for breakfast pain better controlled with Percocet feels R ankle is moving better today - no difficulties ambulating, just takes it slow no other specific concerns today - Patient Data Vitals - Most Recent: Last Vital Signs Temp 98.2 F 11/27/17 04:00 Pulse 82 11/27/17 04:00 Resp 18 11/27/17 04:00 BP 124/74 11/27/17 04:00 Pulse Ox 93 L 11/27/17 04:00 Weight - Most Recent: 122.47 kg I&O - Last 24 Hours: Intake & Output 11/26/17 11/27/17 11/27/17 22:59 06:59 14:59 Intake Total 700 1650 Output Total 200 600 Balance 500 1050 Lab Results Last 24 Hrs: Laboratory Results - last 24 hr 11/27/17 Range/Units 05:25 Hgb 12.7 L (13.0-17.0) g/dL Hct 37.8 L (38.0-50.0) % Med Orders - Current: Current Medications Al Hydroxide/Mg Hydroxide (Mag-Al Plus) 30 ml PO Q4H PRN PRN Reason: indigestion Albuterol (Ventolin Hfa) 8 gm INH ASDIRECTED PRN PRN Reason: Shortness of Breath Aspirin (Aspirin) 325 mg PO BID [facility] Last Admin: 11/27/17 08:12 Dose: 325 mg Bisacodyl (Dulcolax) 10 mg RECTAL DAILY PRN PRN Reason: Constipation Celecoxib (Celebrex) 200 mg PO BID [facility] Last Admin: 11/27/17 08:10 Dose: 200 mg Diphenhydramine HCl (Benadryl) 25 - 50 mg PO Q6H PRN PRN Reason: Itching Docusate Sodium (Colace) 100 mg PO BID [facility] Last Admin: 11/27/17 08:11 Dose: 100 mg Famotidine (Pepcid) 40 mg IVPUSH ONARRIVE [facility] Last Admin: 11/25/17 11:27 Dose: 40 mg Fluticasone Propionate (Flonase) 16 gm NASBOTH ASDIRECTED PRN PRN Reason: nasal congestion Acetaminophen 1,000 mg/ Premix 100 mls @ 400 mls/hr IV ONARRIVE [facility] Last Admin: 11/25/17 11:31 Dose: 400 mls/hr Cefazolin Sodium/Dextrose 2 gm (/ Premix) 50 mls @ 100 mls/hr IV ONCALL [facility] Ropivacaine 49.25 ml/Ketorolac Tromethamine 30 mg/Epinephrine HCl 0.5 mg/ Clonidine HCl 80 mcg/ Sodium Chloride 100 mls @ 50 mls/min INJECT ASDIRECTED [facility] Tranexamic Acid 4,000 mg/ (Sodium Chloride) 140 mls @ 600 mls/hr IV ASDIRECTED [facility] Ketorolac Tromethamine (Toradol) 30 mg IVPUSH ONARRIVE [facility] Last Admin: 11/25/17 11:29 Dose: 30 mg Morphine Sulfate (Morphine) 1 - 3 mg IVPUSH Q3H PRN PRN Reason: Pain Last Admin: 11/27/17 08:08 Dose: 3 mg Omeprazole (Omeprazole) 20 mg PO ACBREAKFAST PRN PRN Reason: Heartburn Last Admin: 11/27/17 08:24 Dose: 20 mg Ondansetron HCl (Zofran) 4 mg IV Q6HR PRN PRN Reason: NAUSEA/VOMITING Last Admin: 11/26/17 11:14 Dose: 4 mg Oxycodone HCl (Oxycontin) 10 mg PO ONARRIVE [facility] Last Admin: 11/25/17 11:26 Dose: 10 mg Oxycodone HCl (Oxycontin) 10 mg PO Q12HR [facility] Last Admin: 11/27/17 08:11 Dose: 10 mg Oxycodone/Acetaminophen (Percocet 325-10 Mg) 2 tab PO Q4H PRN PRN Reason: Pain Last Admin: 11/27/17 02:16 Dose: 2 tab Olmesartan/Amlodipin /Hcthiazid [ Tribenzor 40-5-25 Mg ] 1 Tab 1 each PO DAILY [facility] Last Admin: 11/27/17 08:14 Dose: Not Given Scopolamine (Transderm-Scop) 1.5 mg TRDERM ONARRIVE [facility] Last Admin: 11/25/17 11:26 Dose: 1.5 mg Sodium Chloride (Saline Flush) 10 ml FLUSH ASDIRECTED PRN PRN Reason: Keep Vein Open Sodium Chloride (Saline Flush) 2.5 ml FLUSH ASDIRECTED PRN PRN Reason: Keep Vein Open Discontinued Medications Hydrocodone Bitart/Acetaminophen ([place] 325-10 Mg) 1 - 2 tab PO Q4H PRN PRN Reason: Pain Last Admin: 11/26/17 12:30 Dose: 2 tab Cefazolin Sodium (Ancef) Confirm Administered Dose 1 gm .ROUTE .STK-MED ONE Stop: 11/25/17 11:26 Cefazolin Sodium (Ancef) Confirm Administered Dose 1 gm .ROUTE .STK-MED ONE Stop: 11/25/17 11:26 Diphenhydramine HCl (Benadryl) Confirm Administered Dose 50 mg .ROUTE .STK-MED ONE Stop: 11/25/17 13:08 Ephedrine Sulfate (Ephedrine Sulfate) Confirm Administered Dose 50 mg .ROUTE .STK-MED ONE Stop: 11/25/17 12:55 Fentanyl (Sublimaze) Confirm Administered Dose 100 mcg .ROUTE .STK-MED ONE Stop: 11/25/17 11:26 Lactated Ringer's (Ringers, Lactated) 1,000 mls @ 100 mls/hr IV ASDIRECTED [facility] Last Admin: 11/26/17 02:20 Dose: 100 mls/hr Cefazolin Sodium/Dextrose 2 gm (/ Premix) 50 mls @ 100 mls/hr IV Q8H [facility] Stop: 11/26/17 04:29 Last Admin: 11/26/17 04:12 Dose: 100 mls/hr Ketorolac Tromethamine (Toradol) 30 mg IVPUSH Q6H [facility] Stop: 11/26/17 04:00 Last Admin: 11/26/17 02:19 Dose: 30 mg Midazolam HCl (Versed 1 Mg/Ml) Confirm Administered Dose 2 mg .ROUTE .STK-MED ONE Stop: 11/25/17 12:38 Midazolam HCl (Versed 1 Mg/Ml) Confirm Administered Dose 2 mg .ROUTE .STK-MED ONE Stop: 11/25/17 12:54 Midazolam HCl (Versed 1 Mg/Ml) Confirm Administered Dose 2 mg .ROUTE .STK-MED ONE Stop: 11/25/17 13:22 Morphine Sulfate (Morphine Sanitation Director 30 Mg In 30 Ml) 30 mg IV ASDIRECTED [place] PRN Reason: Protocol Last Admin: 11/26/17 08:15 Dose: 30 mg Ondansetron HCl (Zofran) Confirm Administered Dose 4 mg .ROUTE .STK-MED ONE Stop: 11/25/17 13:08 Propofol (Diprivan 20 Ml) Confirm Administered Dose 600 mg .ROUTE .STK-MED ONE Stop: 11/25/17 12:44 Tranexamic Acid (Cyklokapron) Confirm Administered Dose 4,000 mg .ROUTE .STK- MED ONE Stop: 11/25/17 10:59 - Exam Wound/Incisions: Healing Well. No: Drainage, Erythema General: Alert, Oriented Cardiovascular: Regular Rate, Regular Rhythm Extremities: Other (exam RLE - at/ehl 1-2/5, gastroc 5/5, dp 2+) Physical Findings Comment:: vss, afeb hgb 12.7 - Problem List Review Problem List Initiated/Reviewed/Updated: Yes - My Orders Last 24 Hours: Active Orders 24 hr Category Date Time Status Ready for Discharge [RC] PER UNIT ROUTINE Care 11/27/17 08:48 Ordered HEMOGLOBIN/HEMATOCRIT,HH [HEME] DAILY Lab 11/28/17 06:00 Ordered Acetaminophen/oxyCODONE [Percocet 325-10 MG] Med 11/26/17 17:46 Active 2 tab PO Q4H PRN Aspirin Med 11/26/17 09:00 Active 325 mg PO BID Celecoxib [CeleBREX] Med 11/26/17 09:00 Active 200 mg PO BID Morphine Med 11/26/17 08:25 Active 1 - 3 mg IVPUSH Q3H PRN Patient's Own Medication [Ptom] Med 11/26/17 09:00 Active 1 each PO DAILY Sodium Chloride 0.9% [Saline Flush] Med 11/26/17 08:26 Active 10 ml FLUSH ASDIRECTED PRN Sodium Chloride 0.9% [Saline Flush] Med 11/26/17 08:26 Active 2.5 ml FLUSH ASDIRECTED PRN Convert IV to Saline Lock [OM.PC] Routine Oth 11/26/17 08:26 Ordered Medication Orders Al Hydroxide/Mg Hydroxide (Mag-Al Plus) 30 ml PO Q4H PRN PRN Reason: indigestion Albuterol (Ventolin Hfa) 8 gm INH ASDIRECTED PRN PRN Reason: Shortness of Breath Aspirin (Aspirin) 325 mg PO BID [facility] Last Admin: 11/27/17 08:12 Dose: 325 mg Admin: 11/26/17 20:26 Dose: 325 mg Admin: 11/26/17 08:29 Dose: 325 mg Bisacodyl (Dulcolax) 10 mg RECTAL DAILY PRN PRN Reason: Constipation Celecoxib (Celebrex) 200 mg PO BID [facility] Last Admin: 11/27/17 08:10 Dose: 200 mg Admin: 11/26/17 20:26 Dose: 200 mg Admin: 11/26/17 08:29 Dose: 200 mg Diphenhydramine HCl (Benadryl) 25 - 50 mg PO Q6H PRN PRN Reason: Itching Docusate Sodium (Colace) 100 mg PO BID [facility] Last Admin: 11/27/17 08:11 Dose: 100 mg Admin: 11/26/17 20:26 Dose: 100 mg Admin: 11/26/17 08:28 Dose: 100 mg Admin: 11/25/17 21:56 Dose: 100 mg Famotidine (Pepcid) 40 mg IVPUSH ONARRIVE [facility] Last Admin: 11/25/17 11:27 Dose: 40 mg Fluticasone Propionate (Flonase) 16 gm NASBOTH ASDIRECTED PRN PRN Reason: nasal congestion Acetaminophen 1,000 mg/ Premix 100 mls @ 400 mls/hr IV ONARRIVE [facility] Last Admin: 11/25/17 11:31 Dose: 400 mls/hr Cefazolin Sodium/Dextrose 2 gm (/ Premix) 50 mls @ 100 mls/hr IV ONCALL [facility] Ropivacaine 49.25 ml/Ketorolac Tromethamine 30 mg/Epinephrine HCl 0.5 mg/ Clonidine HCl 80 mcg/ Sodium Chloride 100 mls @ 50 mls/min INJECT ASDIRECTED [facility] Tranexamic Acid 4,000 mg/ (Sodium Chloride) 140 mls @ 600 mls/hr IV ASDIRECTED [facility] Ketorolac Tromethamine (Toradol) 30 mg IVPUSH ONARRIVE [place] Last Admin: 11/25/17 11:29 Dose: 30 mg Morphine Sulfate (Morphine) 1 - 3 mg IVPUSH Q3H PRN PRN Reason: Pain Last Admin: 11/27/17 08:08 Dose: 3 mg Admin: 11/26/17 15:49 Dose: 3 mg Admin: 11/26/17 13:04 Dose: 3 mg Omeprazole (Omeprazole) 20 mg PO ACBREAKFAST PRN PRN Reason: Heartburn Last Admin: 11/27/17 08:24 Dose: 20 mg Admin: 11/26/17 16:39 Dose: 20 mg Ondansetron HCl (Zofran) 4 mg IV Q6HR PRN PRN Reason: NAUSEA/VOMITING Last Admin: 11/26/17 11:14 Dose: 4 mg Oxycodone HCl (Oxycontin) 10 mg PO ONARRIVE [facility] Last Admin: 11/25/17 11:26 Dose: 10 mg Oxycodone HCl (Oxycontin) 10 mg PO Q12HR [facility] Last Admin: 11/27/17 08:11 Dose: 10 mg Admin: 11/26/17 20:26 Dose: 10 mg Admin: 11/26/17 08:30 Dose: 10 mg Admin: 11/25/17 21:56 Dose: 10 mg Oxycodone/Acetaminophen (Percocet 325-10 Mg) 2 tab PO Q4H PRN PRN Reason: Pain Last Admin: 11/27/17 02:16 Dose: 2 tab Admin: 11/26/17 17:56 Dose: 2 tab Olmesartan/Amlodipin /Hcthiazid [ Tribenzor 40-5-25 Mg ] 1 Tab 1 each PO DAILY [facility] Last Admin: 11/27/17 08:14 Dose: Admin: 11/26/17 09:00 Dose: Scopolamine (Transderm-Scop) 1.5 mg TRDERM ONARRIVE [facility] Last Admin: 11/25/17 11:26 Dose: 1.5 mg Sodium Chloride (Saline Flush) 10 ml FLUSH ASDIRECTED PRN PRN Reason: Keep Vein Open Sodium Chloride (Saline Flush) 2.5 ml FLUSH ASDIRECTED PRN PRN Reason: Keep Vein Open - Assessment Assessment (Free Text/Narrative):: POD#2 R TKA acute posthemorrhagic anemia R peroneal nn palsy - Plan Plan (Free Text/Narrative):: continue pain management continue PT will d/ch to home today d/ch meds written <ClementeTessie R - Last Filed: 11/27/17 11:14> - Patient Data Vitals - Most Recent: Last Vital Signs Temp 98.5 F 11/27/17 08:00 Pulse 88 11/27/17 08:00 Resp 14 11/27/17 08:00 BP 104/61 11/27/17 08:00 Pulse Ox 90 L 11/27/17 08:00 I&O - Last 24 Hours: Intake & Output 11/26/17 11/27/17 11/27/17 22:59 06:59 14:59 Intake Total 700 1650 Output Total 200 600 Balance 500 1050 Lab Results Last 24 Hrs: Laboratory Results - last 24 hr 11/27/17 Range/Units 05:25 Hgb 12.7 L (13.0-17.0) g/dL Hct 37.8 L (38.0-50.0) % Med Orders - Current: Current Medications Al Hydroxide/Mg Hydroxide (Mag-Al Plus) 30 ml PO Q4H PRN PRN Reason: indigestion Last Admin: 11/27/17 10:37 Dose: 30 ml Albuterol (Ventolin Hfa) 8 gm INH ASDIRECTED PRN PRN Reason: Shortness of Breath Aspirin (Aspirin) 325 mg PO BID [facility] Last Admin: 11/27/17 08:12 Dose: 325 mg Bisacodyl (Dulcolax) 10 mg RECTAL DAILY PRN PRN Reason: Constipation Celecoxib (Celebrex) 200 mg PO BID [facility] Last Admin: 11/27/17 08:10 Dose: 200 mg Diphenhydramine HCl (Benadryl) 25 - 50 mg PO Q6H PRN PRN Reason: Itching Docusate Sodium (Colace) 100 mg PO BID [facility] Last Admin: 11/27/17 08:11 Dose: 100 mg Famotidine (Pepcid) 40 mg IVPUSH ONARRIVE [facility] Last Admin: 11/25/17 11:27 Dose: 40 mg Fluticasone Propionate (Flonase) 16 gm NASBOTH ASDIRECTED PRN PRN Reason: nasal congestion Acetaminophen 1,000 mg/ Premix 100 mls @ 400 mls/hr IV ONARRIVE [facility] Last Admin: 11/25/17 11:31 Dose: 400 mls/hr Cefazolin Sodium/Dextrose 2 gm (/ Premix) 50 mls @ 100 mls/hr IV ONCALL [facility] Ropivacaine 49.25 ml/Ketorolac Tromethamine 30 mg/Epinephrine HCl 0.5 mg/ Clonidine HCl 80 mcg/ Sodium Chloride 100 mls @ 50 mls/min INJECT ASDIRECTED [facility] Tranexamic Acid 4,000 mg/ (Sodium Chloride) 140 mls @ 600 mls/hr IV ASDIRECTED [facility] Ketorolac Tromethamine (Toradol) 30 mg IVPUSH ONARRIVE [facility] Last Admin: 11/25/17 11:29 Dose: 30 mg Morphine Sulfate (Morphine) 1 - 3 mg IVPUSH Q3H PRN PRN Reason: Pain Last Admin: 11/27/17 08:08 Dose: 3 mg Omeprazole (Omeprazole) 20 mg PO ACBREAKFAST PRN PRN Reason: Heartburn Last Admin: 11/27/17 08:24 Dose: 20 mg Ondansetron HCl (Zofran) 4 mg IV Q6HR PRN PRN Reason: NAUSEA/VOMITING Last Admin: 11/26/17 11:14 Dose: 4 mg Oxycodone HCl (Oxycontin) 10 mg PO ONARRIVE [place] Last Admin: 11/25/17 11:26 Dose: 10 mg Oxycodone HCl (Oxycontin) 10 mg PO Q12HR [facility] Last Admin: 11/27/17 08:11 Dose: 10 mg Oxycodone/Acetaminophen (Percocet 325-10 Mg) 2 tab PO Q4H PRN PRN Reason: Pain Last Admin: 11/27/17 02:16 Dose: 2 tab Olmesartan/Amlodipin /Hcthiazid [ Tribenzor 40-5-25 Mg ] 1 Tab 1 each PO DAILY [facility] Last Admin: 11/27/17 08:14 Dose: Not Given Scopolamine (Transderm-Scop) 1.5 mg TRDERM ONARRIVE [facility] Last Admin: 11/25/17 11:26 Dose: 1.5 mg Sodium Chloride (Saline Flush) 10 ml FLUSH ASDIRECTED PRN PRN Reason: Keep Vein Open Sodium Chloride (Saline Flush) 2.5 ml FLUSH ASDIRECTED PRN PRN Reason: Keep Vein Open Discontinued Medications Hydrocodone Bitart/Acetaminophen ([place] 325-10 Mg) 1 - 2 tab PO Q4H PRN PRN Reason: Pain Last Admin: 11/26/17 12:30 Dose: 2 tab Cefazolin Sodium (Ancef) Confirm Administered Dose 1 gm .ROUTE .STK-MED ONE Stop: 11/25/17 11:26 Cefazolin Sodium (Ancef) Confirm Administered Dose 1 gm .ROUTE .STK-MED ONE Stop: 11/25/17 11:26 Diphenhydramine HCl (Benadryl) Confirm Administered Dose 50 mg .ROUTE .[email or web address]MED ONE Stop: 11/25/17 13:08 Ephedrine Sulfate (Ephedrine Sulfate) Confirm Administered Dose 50 mg .ROUTE .[email or web address]MED ONE Stop: 11/25/17 12:55 Fentanyl (Sublimaze) Confirm Administered Dose 100 mcg .ROUTE .[email or web address]MED ONE Stop: 11/25/17 11:26 Lactated Ringer's (Ringers, Lactated) 1,000 mls @ 100 mls/hr IV ASDIRECTED [facility] Last Admin: 11/26/17 02:20 Dose: 100 mls/hr Cefazolin Sodium/Dextrose 2 gm (/ Premix) 50 mls @ 100 mls/hr IV Q8H [facility] Stop: 11/26/17 04:29 Last Admin: 11/26/17 04:12 Dose: 100 mls/hr Ketorolac Tromethamine (Toradol) 30 mg IVPUSH Q6H [facility] Stop: 11/26/17 04:00 Last Admin: 11/26/17 02:19 Dose: 30 mg Midazolam HCl (Versed 1 Mg/Ml) Confirm Administered Dose 2 mg .ROUTE .ST-MED ONE Stop: 11/25/17 12:38 Midazolam HCl (Versed 1 Mg/Ml) Confirm Administered Dose 2 mg .ROUTE .[email or web address]MED ONE Stop: 11/25/17 12:54 Midazolam HCl (Versed 1 Mg/Ml) Confirm Administered Dose 2 mg .ROUTE .STK-MED ONE Stop: 11/25/17 13:22 Morphine Sulfate (Morphine Sanitation Director 30 Mg In 30 Ml) 30 mg IV ASDIRECTED [place] PRN Reason: Protocol Last Admin: 11/26/17 08:15 Dose: 30 mg Ondansetron HCl (Zofran) Confirm Administered Dose 4 mg .ROUTE .STK-MED ONE Stop: 11/25/17 13:08 Propofol (Diprivan 20 Ml) Confirm Administered Dose 600 mg .ROUTE .K-MED ONE Stop: 11/25/17 12:44 Tranexamic Acid (Cyklokapron) Confirm Administered Dose 4,000 mg .ROUTE .STK- MED ONE Stop: 11/25/17 10:59 - My Orders Last 24 Hours: Active Orders 24 hr Category Date Time Status Ready for Discharge [RC] PER UNIT ROUTINE Care 11/27/17 08:48 Active HEMOGLOBIN/HEMATOCRIT,HH [HEME] DAILY Lab 11/28/17 06:00 Ordered Acetaminophen/oxyCODONE [Percocet 325-10 MG] Med 11/26/17 17:46 Active 2 tab PO Q4H PRN Medication Orders Al Hydroxide/Mg Hydroxide (Mag-Al Plus) 30 ml PO Q4H PRN PRN Reason: indigestion Last Admin: 11/27/17 10:37 Dose: 30 ml Albuterol (Ventolin Hfa) 8 gm INH ASDIRECTED PRN PRN Reason: Shortness of Breath Aspirin (Aspirin) 325 mg PO BID [facility] Last Admin: 11/27/17 08:12 Dose: 325 mg Admin: 11/26/17 20:26 Dose: 325 mg Admin: 11/26/17 08:29 Dose: 325 mg Bisacodyl (Dulcolax) 10 mg RECTAL DAILY PRN PRN Reason: Constipation Celecoxib (Celebrex) 200 mg PO BID [facility] Last Admin: 11/27/17 08:10 Dose: 200 mg Admin: 11/26/17 20:26 Dose: 200 mg Admin: 11/26/17 08:29 Dose: 200 mg Diphenhydramine HCl (Benadryl) 25 - 50 mg PO Q6H PRN PRN Reason: Itching Docusate Sodium (Colace) 100 mg PO BID [facility] Last Admin: 11/27/17 08:11 Dose: 100 mg Admin: 11/26/17 20:26 Dose: 100 mg Admin: 11/26/17 08:28 Dose: 100 mg Admin: 11/25/17 21:56 Dose: 100 mg Famotidine (Pepcid) 40 mg IVPUSH ONARRIVE [facility] Last Admin: 11/25/17 11:27 Dose: 40 mg Fluticasone Propionate (Flonase) 16 gm NASBOTH ASDIRECTED PRN PRN Reason: nasal congestion Acetaminophen 1,000 mg/ Premix 100 mls @ 400 mls/hr IV ONARRIVE [facility] Last Admin: 11/25/17 11:31 Dose: 400 mls/hr Cefazolin Sodium/Dextrose 2 gm (/ Premix) 50 mls @ 100 mls/hr IV ONCALL [facility] Ropivacaine 49.25 ml/Ketorolac Tromethamine 30 mg/Epinephrine HCl 0.5 mg/ Clonidine HCl 80 mcg/ Sodium Chloride 100 mls @ 50 mls/min INJECT ASDIRECTED [facility] Tranexamic Acid 4,000 mg/ (Sodium Chloride) 140 mls @ 600 mls/hr IV ASDIRECTED [facility] Ketorolac Tromethamine (Toradol) 30 mg IVPUSH ONARRIVE [facility] Last Admin: 11/25/17 11:29 Dose: 30 mg Morphine Sulfate (Morphine) 1 - 3 mg IVPUSH Q3H PRN PRN Reason: Pain Last Admin: 11/27/17 08:08 Dose: 3 mg Admin: 11/26/17 15:49 Dose: 3 mg Admin: 11/26/17 13:04 Dose: 3 mg Omeprazole (Omeprazole) 20 mg PO ACBREAKFAST PRN PRN Reason: Heartburn Last Admin: 11/27/17 08:24 Dose: 20 mg Admin: 11/26/17 16:39 Dose: 20 mg Ondansetron HCl (Zofran) 4 mg IV Q6HR PRN PRN Reason: NAUSEA/VOMITING Last Admin: 11/26/17 11:14 Dose: 4 mg Oxycodone HCl (Oxycontin) 10 mg PO ONARRIVE [facility] Last Admin: 11/25/17 11:26 Dose: 10 mg Oxycodone HCl (Oxycontin) 10 mg PO Q12HR [facility] Last Admin: 11/27/17 08:11 Dose: 10 mg Admin: 11/26/17 20:26 Dose: 10 mg Admin: 11/26/17 08:30 Dose: 10 mg Admin: 11/25/17 21:56 Dose: 10 mg Oxycodone/Acetaminophen (Percocet 325-10 Mg) 2 tab PO Q4H PRN PRN Reason: Pain Last Admin: 11/27/17 02:16 Dose: 2 tab Admin: 11/26/17 17:56 Dose: 2 tab Olmesartan/Amlodipin /Hcthiazid [ Tribenzor 40-5-25 Mg ] 1 Tab 1 each PO DAILY [facility] Last Admin: 11/27/17 08:14 Dose: Admin: 11/26/17 09:00 Dose: Scopolamine (Transderm-Scop) 1.5 mg TRDERM ONARRIVE [facility] Last Admin: 11/25/17 11:26 Dose: 1.5 mg Sodium Chloride (Saline Flush) 10 ml FLUSH ASDIRECTED PRN PRN Reason: Keep Vein Open Sodium Chloride (Saline Flush) 2.5 ml FLUSH ASDIRECTED PRN PRN Reason: Keep Vein Open - Plan Plan (Free Text/Narrative):: 1000 Patient seen and examined. AGree with above. Patient sitting up in chair. Pain better controlled with Percocet. No other complaints. Progressing with PT. Dressing dry/intact. AT/EHL 4/4. Gastroc 5/5. Sensation intact. DP 2+. Hgb stable. Plan to discharge home today. Continue with outpatient PT. Patient agrees with plan. michele
[2017-11-27 09:25] VITALS: BP 104/61
--- NOTE | 2017-11-28 13:16 | DISCH ---
DATE OF DISCHARGE: 11/27/2017 PRIMARY CARE PHYSICIAN: Gustavo Jang MD ADMITTING DIAGNOSES: 1. Degenerative joint disease, right knee, tricompartmental. 2. Status post right ACL reconstruction. OTHER MEDICAL DIAGNOSES: 1. Hypertension. 2. Gastroesophageal reflux disease. 3. Asthma. DISCHARGE DIAGNOSES: 1. Degenerative joint disease, right knee, tricompartmental. 2. Status post right ACL reconstruction. 3. Hypertension. 4. Gastroesophageal reflux disease. 5. Asthma. 6. Acute posthemorrhagic anemia. BRIEF HISTORY: Lele is a 57-year-old male, who has previously undergone a right ACL reconstruction. He had gone on to do well. He had developed increasing right knee pain. He has tried and failed conservative treatment. At that time, surgical treatment was recommended. On November 25, 2017, the patient underwent a right total knee arthroplasty using [employer] computerized navigational technology done by Dr. Tessie Cornejo. This was done under spinal anesthesia with sedation. Estimated blood loss was 100 mL. Tourniquet time was 16 minutes. There were no known complications. Upon completion of the procedure, the patient was sent to the PACU and subsequently to Med/Surg for postoperative care. HOSPITAL COURSE: Postoperatively, the patient did well. His pain was controlled with a combination of oral and IV pain medication. He was given two doses of antibiotics postoperatively for a total of 24 hours of antibiotic coverage. Physical therapy followed him through his hospital stay. Aspirin 325 mg was started on postoperative day #1 as DVT prophylaxis. During his hospital course, he was having poor pain control with [place] 10/325, was switched to Percocet 10/325, which did improve his pain. His vital signs have been stable. He has been afebrile. His hemoglobin on the morning of November 27 was 12.7. He was found to have a peroneal nerve palsy on postoperative day #1. His anterior tibialis and extensor hallucis longus function is graded 2/5. Gastrocs strength is 5/5 throughout his hospital stay. He does not complain of difficulties with ambulation, but we may consider an AFO if he develops any of these concerns. He feels comfortable discharge to home today. DISCHARGE MEDICATIONS: 1. OxyContin 10 mg. 2. Percocet 10/325. 3. Celebrex 200 mg. 4. Colace 100 mg. 5. Aspirin 325 mg. DISCHARGE INSTRUCTIONS: 1. Follow up in clinic in 10-14 days from the date of procedure. This appointment has been made for the patient. 2. Outpatient physical therapy 2-3 times per week for 4-6 weeks. 3. He may not drive for a minimum of 6 weeks status post right total knee arthroplasty. 4. He is to change his dressing on Saturday, December 01, 2017. He should place a new Aquacel dressing and leave that in place until followup. 5. Polar Care to the right knee as needed. 6. JUAN hose, on in the morning, off in the evening. For complete medication reconciliation and discharge instructions, please refer back to the patient's EHR. Should he have questions or concerns prior to followup, he has been advised to return to clinic or call. AMIRA GONZALEZ /[id number] KODI
== END 2017-11-27 11:55 | disposition home or self-care (01) | DRG 470 ==
LOC: MW.MS 11:05
PROVIDERS: ADMIT Orthopaedic Surgery; ATTEND Orthopaedic Surgery
PROC: 0SRC0J9 Replacement of Right Knee Joint with Synthetic Substitute, Cemented, Open Approach (ICD-10-PCS; principal; 2017-11-25)
DX: M17.11 Unilateral primary osteoarthritis, right knee (principal); M94.261 Chondromalacia, right knee
CPT/HCPCS: 01402; 36415; 73560-26-RT; 73560-RT; 85014; 85018; 85610; 86850; 86900; 86901; 88305; 88311; 97110-GP; 97116-GP; 97161-GP; A9270-GY; C1713; C1776; J0171; J0690; J0735; J1200; J1885; J2250; J2270; J2274; J2405; J2704; J2795; J3010; J7050; J7120

== ENCOUNTER 2018-05-10 06:27 | Emergency (ER) | payer OTHER ==
[2018-05-10] MEDS ORDERED: Aspirin 81 MG Tab.Chew PO ONE (06:36)
[2018-05-10] MEDS ORDERED: Sodium Chloride 0.9% 10 ML Syringe FLUSH PRN (06:36)
[2018-05-10] MEDS ORDERED: Sodium Chloride 0.9% 2.5 ML Syringe FLUSH PRN (06:36)
[2018-05-10 07:09] LABS: CHLORIDE,CL 88 mmol/L (98-107); SODIUM,NA 123 mmol/L (136-148)
[2018-05-10] MEDS ORDERED: Albuterol/Ipratropium 3.0-0.5 MG/3 ML Neb Soln NEB ONE (07:11)
[2018-05-10] MEDS ORDERED: Sodium Chloride 0.9% 1,000 ML IV ONE (07:25)
--- NOTE | 2018-05-10 07:36 | EDM.PDOC ---
ED HPI GENERAL MEDICAL PROBLEM - General Chief Complaint: Chest Pain Stated Complaint: CHEST PAIN, TROUBLE BREATHING Time Seen by Provider: 05/10/18 06:39 Source of Information: Reports: Patient History Limitations: Reports: No Limitations - History of Present Illness INITIAL COMMENTS - FREE TEXT/NARRATIVE: History of present illness: []Patient started having a cough 2 months ago and states that the last 2 days he 's had left-sided sharp chest pain. It occurred after a coughing spasm. He denies any fevers, chills, nausea, vomiting or diarrhea. Patient has had wheezing all his life and is requesting a Z-Antony and Tessalon Perles. He does not want any other treatment. Review of systems: As per history of present illness and below otherwise all systems reviewed and negative. Past medical history: As per history of present illness and as reviewed below otherwise noncontributory. Surgical history: As per history of present illness and as reviewed below otherwise noncontributory. Social history: No reported history of drug or alcohol abuse. Family history: As per history of present illness and as reviewed below otherwise noncontributory. Physical exam: General: Well developed, well nourished in NAD HEENT: Atraumatic, normocephalic, pupils reactive, negative for conjunctival pallor or scleral icterus, mucous membranes moist, throat clear, neck supple, nontender, trachea midline. Lungs: Bilateral wheezing no respiratory distress or rhonchi, chest tender to palpation left lower ribs no bony step-offs or crepitance palpated Heart: S1S2, regular, negative for clicks, rubs, or JVD. Abdomen: Soft, nondistended, nontender. Negative for masses or hepatosplenomegaly. Negative for costovertebral tenderness. Pelvis: Stable nontender. Genitourinary: Deferred. Rectal: Deferred. Extremities: Atraumatic, negative for cords or calf pain. Neurovascular unremarkable. Neuro: Awake, alert, oriented. Cranial nerves II through XII unremarkable. Cerebellum unremarkable. Motor and sensory unremarkable throughout. Exam nonfocal. Diagnostics: []CBC shows white count elevated 14.1 with mild shift, chemistries show sodium low at 123 otherwise normal, chest x-ray shows mild congestion throughout BNP is negative and troponin is negative. EKG shows no acute ischemic changes. Therapeutics: []DuoNeb ordered patient refused to take it, patient was hydrated with normal saline 1 L Impression: []Acute bronchitis, asymptomatic hyponatremia Plan: []Emani-Raegan Hardy follow-up with primary care Definitive disposition and diagnosis as appropriate pending reevaluation and review of above. chest Pain Score (Numeric/FACES): 9 - Related Data Allergies Allergy/AdvReac Type Severity Reaction Status Date / Time No Known Allergies Allergy Verified 05/10/18 06:38 Home Meds: Home Meds Fluticasone Propionate [Flonase Allergy Relief] 1 spray NASBOTH ASDIRECTED PRN 10/14/15 [History] Albuterol [IJD: Albuterol HFA] 2 puff INH ASDIRECTED PRN 11/21/17 [History] Olmesartan/Amlodipin/Hcthiazid [Tribenzor 40-5-25 MG] 1 tab PO DAILY 11/21/17 [ History] Omeprazole 20 mg PO DAILY PRN 11/21/17 [History] Aspirin 325 mg PO BID #60 tablet 11/27/17 [Rx] Azithromycin [Zithromax] 250 mg PO DAILY #6 tab 05/10/18 [Rx] Benzonatate [Tessalon Perle] 100 mg PO TID PRN #20 capsule 05/10/18 [Rx] Past Medical History HEENT History: Reports: Allergic Rhinitis Other HEENT History: wears glasses Cardiovascular History: Reports: Hypertension Respiratory History: Reports: Other (See Below) Other Respiratory History: pneumonia Gastrointestinal History: Reports: GERD Musculoskeletal History: Reports: Arthritis, Fracture Other Musculoskeletal History: hx of fx left arm x3 Endocrine/Metabolic History: Reports: Obesity/BMI 30+ Hematologic History: Reports: Other (See Below) Other Hematologic History: may have had a transfusion at age 2 during open heart valve surgery Oncologic (Cancer) History: Reports: Basal Cell Carcinoma Other Oncologic History: states he has a basal cell carcinoma on left reese - Infectious Disease History Infectious Disease History: Reports: Chicken Pox, Measles - Past Surgical History Head Surgeries/Procedures: Reports: None HEENT Surgical History: Reports: None Cardiovascular Surgical History: Reports: Other (See Below) Other Cardiovascular Surgeries/Procedures: Voices removal of valvular lesion at age 2 Respiratory Surgical History: Reports: None Musculoskeletal Surgical History: Reports: Other (See Below) Other Musculoskeletal Surgeries/Procedures:: hx of ACL repair right knee (has screws) Oncologic Surgical History: Reports: None Social & Family History - Family History Family Medical History: Noncontributory - Tobacco Use Smoking Status *Q: Current Every Day Smoker Years of Tobacco use: 45 Packs/Tins Daily: 0.5 - Caffeine Use Caffeine Use: Reports: Coffee - Recreational Drug Use Recreational Drug Use: No ED ROS GENERAL - Review of Systems Review Of Systems: See Below (See history of present illness) ED EXAM, GENERAL - Physical Exam Exam: See Below (See history of present illness) Course - Vital Signs Last Recorded V/S: Last Vital Signs Temp 97.5 F 05/10/18 09:17 Pulse 85 05/10/18 09:17 Resp 18 05/10/18 09:17 BP 99/72 05/10/18 09:17 Pulse Ox 92 L 05/10/18 09:17 - Orders/Labs/Meds Orders: Active Orders 24 hr Category Date Time Status Cardiac Monitoring [RC] . DIRECTED Care 05/10/18 06:36 Active EKG Documentation Completion [RC] STAT Care 05/10/18 06:36 Active RT Aerosol Therapy [RC] ASDIRECTED Care 05/10/18 07:11 Active Chest 1V Frontal [CR] Stat Exams 05/10/18 06:36 Taken Saline Lock Insert [OM.PC] Stat Oth 05/10/18 06:36 Ordered Labs: Laboratory Tests 05/10/18 05/10/18 05/10/18 Range/Units 05:41 05:41 05:41 WBC 14.18 H (4.0-11.0) K/uL RBC 5.10 (4.50-5.90) M/uL Hgb 16.2 (13.0-17.0) g/dL Hct 45.9 (38.0-50.0) % MCV 90.0 (80.0-98.0) fL MCH 31.8 (27.0-32.0) pg MCHC 35.3 (31.0-37.0) g/dL RDW Std Deviation 42.2 (28.0-62.0) fl RDW Coeff of Anthony 13 (11.0-15.0) % Plt Count 336 (150-400) K/uL MPV 9.30 (7.40-12.00) fL Neut % (Auto) 59.5 (48.0-80.0) % Lymph % (Auto) 29.0 (16.0-40.0) % [place] % (Auto) 8.3 (0.0-15.0) % Eos % (Auto) 3.0 (0.0-7.0) % Baso % (Auto) 0.2 (0.0-1.5) % Neut # (Auto) 8.4 H (1.4-5.7) K/uL Lymph # (Auto) 4.1 H (0.6-2.4) K/uL [place] # (Auto) 1.2 H (0.0-0.8) K/uL Eos # (Auto) 0.4 (0.0-0.7) K/uL Baso # (Auto) 0.0 (0.0-0.1) K/uL Nucleated RBC % 0.0 /100WBC Nucleated RBCs # 0 K/uL Sodium 123 L (136-148) mmol/L Potassium 4.0 (3.5-5.1) mmol/L Chloride 88 L (98-107) mmol/L Carbon Dioxide 29.4 (21.0-32.0) mmol/L BUN 13 (7.0-18.0) mg/dL Creatinine 1.3 (0.8-1.3) mg/dL Est Cr Clr Drug Dosing 65.97 mL/min Estimated GFR (MDRD) 56.7 ml/min Glucose 97 (74-106) mg/dL Calcium 8.7 (8.5-10.1) mg/dL Total Bilirubin 0.2 (0.2-1.0) mg/dL AST 29 (15-37) IU/L ALT 42 (14-63) IU/L Alkaline Phosphatase 90 (46-116) U/L Troponin I < 0.050 (0.000-0.056) ng/mL B-Natriuretic Peptide < 15 (<100) PG/ML Total Protein 7.3 (6.4-8.2) g/dL Albumin 3.2 L (3.4-5.0) g/dL Globulin 4.1 H (2.0-3.5) g/dL Albumin/Globulin Ratio 0.8 L (1.3-2.8) Meds: Medications Discontinued Medications Generic Name Dose Route Start Last Admin Trade Name Freq PRN Reason Stop Dose Admin Albuterol/Ipratropium 3 ml 05/10/18 07:11 05/10/18 07:23 Duoneb 3.0-0.5 Mg/3 Ml NEB 05/10/18 07:12 3 ml ONETIME ONE Administration Aspirin 324 mg 05/10/18 06:36 05/10/18 07:21 Aspirin PO 05/10/18 06:37 324 mg ONETIME ONE Administration Sodium Chloride 1,000 mls @ 999 mls/hr 05/10/18 07:25 05/10/18 08:04 Normal Saline IV 05/10/18 08:25 999 mls/hr .Bolus ONE Administration Sodium Chloride 10 ml 05/10/18 06:36 Saline Flush FLUSH ASDIRECTED PRN Keep Vein Open Sodium Chloride 2.5 ml 05/10/18 06:36 Saline Flush FLUSH ASDIRECTED PRN Keep Vein Open Departure - Departure Time of Disposition: 10:06 Disposition: Home, Self-Care 01 Condition: Good Clinical Impression: Hyponatremia - Discharge Information Prescriptions: Azithromycin [Zithromax] 250 mg PO DAILY #6 tab Benzonatate [Tessalon Perle] 100 mg PO TID PRN #20 capsule PRN Reason: Cough Instructions: Hyponatremia, [id number] Referrals: PCP,None [Primary Care Provider] - Forms: ED Department Discharge Additional Instructions: The following information is given to patients seen in the emergency department who are being discharged to home. This information is to outline your options for follow-up care. We provide all patients seen in our emergency department with a follow-up referral. The need for follow-up, as well as the timing and circumstances, are variable depending upon the specifics of your emergency department visit. If you don't have a primary care physician on staff, we will provide you with a referral. We always advise you to contact your personal physician following an emergency department visit to inform them of the circumstance of the visit and for follow-up with them and/or the need for any referrals to a consulting specialist. The emergency department will also refer you to a specialist when appropriate. This referral assures that you have the opportunity for follow-up care with a specialist. All of these measure are taken in an effort to provide you with optimal care, which includes your follow-up. Under all circumstances we always encourage you to contact your private physician who remains a resource for coordinating your care. When calling for follow-up care, please make the office aware that this follow-up is from your recent emergency room visit. If for any reason you are refused follow-up, please contact the [facility] Emergency Department at and asked to speak to the emergency department charge nurse. [facility] [address] [place] [id number] - My Orders Last 24 Hours: My Active Orders 05/10/18 06:36 Cardiac Monitoring [RC] . DIRECTED EKG Documentation Completion [RC] STAT Chest 1V Frontal [CR] Stat Saline Lock Insert [OM.PC] Stat 05/10/18 07:11 RT Aerosol Therapy [RC] ASDIRECTED - Assessment/Plan Last 24 Hours: My Active Orders 05/10/18 06:36 Cardiac Monitoring [RC] . DIRECTED EKG Documentation Completion [RC] STAT Chest 1V Frontal [CR] Stat Saline Lock Insert [OM.PC] Stat 05/10/18 07:11 RT Aerosol Therapy [RC] ASDIRECTED
[2018-05-10 09:28] VITALS: BP 99/72
--- NOTE | 2018-05-12 15:18 | CR ---
EXAM DATE: 05/10/18 PATIENT'S AGE: 57 Patient: JACQUE AGUILAR Facility: [place], [place] Site . Site : 1960 Study: XRay Chest [id number]/14/2018 7:13:19 AM Ordering Physician: Doctor Rizzo Final Report: INDICATION: Chest pain. COMPARISON: 10/14/2015. FINDINGS: A portable AP view of the chest was obtained. The cardiac silhouette and pulmonary vasculature are within normal limits. The lungs are clear bilaterally. IMPRESSION: No evidence of acute pulmonary disease. Dictated by Simone Leahy MD @ 05/10/2018 7:40:02 AM Dictated by: Simone Leahy MD @ 05/10/2018 07:40:15 (Electronic Signature) Report Signed by Proxy. [facility]
== END 2018-05-10 09:27 | disposition home or self-care (01) ==
LOC: MW.ED 06:27
DX: E87.1 Hypo-osmolality and hyponatremia (principal); J20.9 Acute bronchitis, unspecified; I10 Essential (primary) hypertension; K21.9 Gastro-esophageal reflux disease without esophagitis; F17.210 Nicotine dependence, cigarettes, uncomplicated; Z79.82 Long term (current) use of aspirin; Z79.899 Other long term (current) drug therapy
CPT/HCPCS: 36415; 71045; 80053; 83880; 84484; 85025; 93005; 94640; 96360; 96361; 99285; A9270; J7040

== ENCOUNTER 2024-09-08 08:15 | Inpatient (IN) | payer BC, OTHER ==
[2024-09-08] MEDS ORDERED: Sodium Chloride 0.9% 2.5 ML Syringe FLUSH PRN ×2 (08:32→12:26)
[2024-09-08 09:00] LABS: HEMATOCRIT 49.5 % (42.0-52.0); HEMOGLOBIN 16.6 g/dL (14.0-18.0); MEAN CORPUSCULAR HEMOGLOBIN 31.8 pg (28.0-32.0); MEAN CORPUSCULAR HGB CONC 33.5 g/dL (32.0-36.0); MEAN CORPUSCULAR VOLUME 94.8 fL (83.0-99.0); MEAN PLATELET VOLUME 10.1 fL (9.4-12.4); PLATELET COUNT,PLT 281 K/uL (150-400); RED BLOOD CELL COUNT 5.22 M/uL (4.52-5.90); WHITE BLOOD CELL COUNT,WBC 12.37 K/uL (3.9-11.3)
[2024-09-08 09:20] LABS: INR 1.11 (0.86-1.11)
[2024-09-08 09:29] LABS: A/G RATIO 0.8 (0.9-1.6); ALBUMIN 3.2 g/dL (3.4-5.0); BILIRUBIN TOTAL 0.3 mg/dL (0.2-1.0); CARBON DIOXIDE,CO2 31.9 mmol/L (21.0-32.0); CREATININE 1.2 mg/dL (0.8-1.3); EST CRCL DRUG DOSING (CG) 65.36 mL/min; POTASSIUM,K 4.2 mmol/L (3.5-5.1); PROTEIN TOTAL,TP 7.2 g/dL (6.4-8.2)
[2024-09-08 09:33] LABS: EOSINOPHILS ABSOLUTE MAN 0.49 K/uL (0.00-0.45); EOSINOPHILS PERCENT MAN 4 % (0-6); LYMPHOCYTES ABSOLUTE MAN 3.34 K/uL (1.00-4.80); LYMPHOCYTES PERCENT MAN 27 % (24-44); MONOCYTES ABSOLUTE MAN 1.61 K/uL (0.00-0.80); MONOCYTES PERCENT MAN 13 % (0-8); SEG NEUTROPHILS ABSOLUTE MAN 6.93 K/uL (1.80-7.70); SEG NEUTROPHILS PERCENT MAN 56 % (41-71)
[2024-09-08] MEDS: Albuterol/Ipratropium 3.0-0.5 MG/3 ML Neb Soln NEB ONE (10:28)
[2024-09-08] MEDS: Diltiazem 25 MG/5 ML SDV IVPUSH ONE (10:28)
[2024-09-08] MEDS: Sodium Chloride 0.9% 10 ML Syringe FLUSH PRN (10:28)
[2024-09-08] MEDS: Furosemide 40 MG/4 ML VIAL IVPUSH ONE (12:19)
[2024-09-08] MEDS ORDERED: Ondansetron 4 MG/2 ML SDV IVPUSH PRN (12:26)
[2024-09-08] MEDS ORDERED: Sodium Chloride 0.9% 10 ML Syringe FLUSH PRN (12:26)
[2024-09-08 13:09] LABS: PERCENT FE SATURATION 17.63 % (20-55); TRANSFERRIN 242.2
[2024-09-08 13:16] LABS: HEMOGLOBIN A1C 5.6 %
[2024-09-08 13:22] LABS: TSH ULTRASENSITIVE 2.18 uIU/mL (0.36-3.74)
[2024-09-08] MEDS: Losartan 50 MG Tab PO SCH (13:52)
[2024-09-08] MEDS: Furosemide 40 MG/4 ML VIAL IVPUSH SCH (13:53)
[2024-09-08] MEDS: Enoxaparin 40 MG/0.4 ML Syringe SUBCUT SCH (13:53)
[2024-09-08] MEDS: Albuterol 8 GM Inhaler INH PRN (21:37)
[2024-09-08] MEDS: Melatonin 3 MG Tab PO PRN (21:37)
[2024-09-09] MEDS: Albuterol/Ipratropium 3.0-0.5 MG/3 ML Neb Soln NEB PRN (02:12)
[2024-09-09 05:50] LABS: BASOPHILS ABSOLUTE AUTO 0.06 K/uL (0.00-0.20); BASOPHILS PERCENT AUTO 0.4 % (0.0-1.0); EOSINOPHILS ABSOLUTE AUTO 0.52 K/uL (0.00-0.45); EOSINOPHILS PERCENT AUTO 3.9 % (0.0-6.0); HEMOGLOBIN 17.1 g/dL (14.0-18.0); IMMATURE GRAN ABSOLUTE AUTO 0.03 K/uL (0.00-0.05); IMMATURE GRAN PERCENT AUTO 0.2 % (0.0-0.4); LYMPHOCYTES ABSOLUTE AUTO 3.02 K/uL (1.00-4.80); LYMPHOCYTES PERCENT AUTO 22.5 % (24.0-44.0); MEAN CORPUSCULAR HGB CONC 33.5 g/dL (32.0-36.0); MEAN CORPUSCULAR VOLUME 95.3 fL (83.0-99.0); MONOCYTES ABSOLUTE AUTO 1.36 K/uL (0.00-0.80); MONOCYTES PERCENT AUTO 10.1 % (0.0-8.0); NEUTROPHILS ABSOLUTE AUTO 8.41 K/uL (1.80-7.70); NEUTROPHILS PERCENT AUTO 62.9 % (41.0-71.0); PLATELET COUNT,PLT 281 K/uL (150-400); RED BLOOD CELL COUNT 5.35 M/uL (4.52-5.90)
[2024-09-09 06:14] LABS: CALCIUM 9.3 mg/dL (8.5-10.1); CARBON DIOXIDE,CO2 36.1 mmol/L (21.0-32.0); CREATININE 1.2 mg/dL (0.8-1.3); EST CRCL DRUG DOSING (CG) 65.36 mL/min; MAGNESIUM 1.8 mg/dL (1.8-2.4); POTASSIUM,K 3.6 mmol/L (3.5-5.1)
[2024-09-09] MEDS: Pantoprazole 40 MG Tab.CR PO SCH (06:34)
[2024-09-09] MEDS: Polyethylene Glycol 3350 Powder 17 GM Packet PO PRN (06:39)
[2024-09-09] MEDS: Docusate Sodium 100 MG Cap PO PRN (06:39)
[2024-09-09] MEDS: Empagliflozin 10 MG Tab PO SCH (08:29)
[2024-09-09] MEDS: Potassium Chloride 20 MEQ Tab.ER PO ONE (10:03)
[2024-09-09] MEDS: Acetaminophen 325 MG Tab PO PRN (21:45)
[2024-09-10 06:53] LABS: HEMOGLOBIN 17.7 g/dL (14.0-18.0); MEAN CORPUSCULAR HEMOGLOBIN 31.4 pg (28.0-32.0); MEAN CORPUSCULAR HGB CONC 32.8 g/dL (32.0-36.0); MEAN CORPUSCULAR VOLUME 95.9 fL (83.0-99.0); MEAN PLATELET VOLUME 10.4 fL (9.4-12.4); PLATELET COUNT,PLT 272 K/uL (150-400); RED BLOOD CELL COUNT 5.63 M/uL (4.52-5.90)
[2024-09-10 07:08] LABS: CALCIUM 9.5 mg/dL (8.5-10.1); CARBON DIOXIDE,CO2 36.8 mmol/L (21.0-32.0); CREATININE 1.2 mg/dL (0.8-1.3); EST CRCL DRUG DOSING (CG) 65.36 mL/min; MAGNESIUM 1.9 mg/dL (1.8-2.4); POTASSIUM,K 3.7 mmol/L (3.5-5.1)
[2024-09-10 08:14] LABS: BAND ABSOLUTE MAN 0.37; BAND PERCENT MAN 3 %; BASOPHILS ABSOLUTE MAN 0.25 K/uL (0.00-0.20); BASOPHILS PERCENT MAN 2 % (0-1); EOSINOPHILS ABSOLUTE MAN 0.25 K/uL (0.00-0.45); EOSINOPHILS PERCENT MAN 2 % (0-6); LYMPHOCYTES PERCENT MAN 21 % (24-44); MONOCYTES ABSOLUTE MAN 2.23 K/uL (0.00-0.80); MONOCYTES PERCENT MAN 18 % (0-8); SEG NEUTROPHILS PERCENT MAN 54 % (41-71)
[2024-09-10] MEDS: Spironolactone 25 MG Tab PO SCH (09:13)
[2024-09-10] MEDS: Potassium Chloride 20 MEQ Tab.ER PO ONE (09:13)
[2024-09-10] MEDS: Furosemide 40 MG/4 ML VIAL IVPUSH SCH (12:43)
[2024-09-10] MEDS: Bisacodyl 10 MG Supp RECTAL PRN (16:01)
[2024-09-11 06:12] LABS: HEMATOCRIT 53.6 % (42.0-52.0); HEMOGLOBIN 18.2 g/dL (14.0-18.0); MEAN CORPUSCULAR HEMOGLOBIN 31.9 pg (28.0-32.0); MEAN CORPUSCULAR VOLUME 93.9 fL (83.0-99.0); MEAN PLATELET VOLUME 10.3 fL (9.4-12.4); PLATELET COUNT,PLT 296 K/uL (150-400); RED BLOOD CELL COUNT 5.71 M/uL (4.52-5.90); WHITE BLOOD CELL COUNT,WBC 15.94 K/uL (3.9-11.3)
[2024-09-11 06:34] LABS: CALCIUM 9.6 mg/dL (8.5-10.1); CARBON DIOXIDE,CO2 34.8 mmol/L (21.0-32.0); CREATININE 1.6 mg/dL (0.8-1.3); EST CRCL DRUG DOSING (CG) 49.02 mL/min; MAGNESIUM 1.9 mg/dL (1.8-2.4); POTASSIUM,K 3.7 mmol/L (3.5-5.1)
[2024-09-11 06:37] LABS: BAND ABSOLUTE MAN 0.48; BAND PERCENT MAN 3 %; EOSINOPHILS ABSOLUTE MAN 0.32 K/uL (0.00-0.45); EOSINOPHILS PERCENT MAN 2 % (0-6); LYMPHOCYTES ABSOLUTE MAN 4.14 K/uL (1.00-4.80); LYMPHOCYTES PERCENT MAN 26 % (24-44); MONOCYTES ABSOLUTE MAN 2.07 K/uL (0.00-0.80); MONOCYTES PERCENT MAN 13 % (0-8); SEG NEUTROPHILS ABSOLUTE MAN 8.93 K/uL (1.80-7.70); SEG NEUTROPHILS PERCENT MAN 56 % (41-71)
[2024-09-11 10:22] VITALS: BP 132/94; PULSE 89
[2024-09-11] MEDS: Metoprolol Succinate 25 MG Tab.ER PO SCH (10:30)
== END 2024-09-11 10:45 | disposition home or self-care (01) | DRG 291 ==
LOC: MW.ED 08:15 → UNDOADMOB 11:53 → MW.MS 11:53 → INTOOBSV 12:32 → MW.MS 12:32 → OBSVTOIN 12:32
PROVIDERS: ADMIT Internal Medicine; ATTEND Internal Medicine
DX: I11.0 Hypertensive heart disease with heart failure (principal); I50.23 Acute on chronic systolic (congestive) heart failure; R09.02 Hypoxemia; J44.9 Chronic obstructive pulmonary disease, unspecified; K21.9 Gastro-esophageal reflux disease without esophagitis; E78.00 Pure hypercholesterolemia, unspecified; F17.210 Nicotine dependence, cigarettes, uncomplicated
CPT/HCPCS: 36415; 71046; 71046-26; 80048; 80053; 80061; 82607; 82728; 83036; 83550; 83735; 83880; 84443; 84484; 85025; 85379; 85610; 87428-QW; 93005; 93010; 93306; 96374; 96375; 99285; 99285-25; A9270-GY; J1650; J1940; J3490; J7620-GY